=== PATIENT | female | born 1950 | race Caucasian/White ===

== ENCOUNTER 2018-04-17 18:47 | Emergency (ER) | payer BC, OTHER ==
--- NOTE | 2018-04-17 20:47 | RAD REPORT ---
EXAM DESCRIPTION: CT - CTHCSPWOC - 04/17/2018 8:38 pm CLINICAL HISTORY: Trauma, head and neck injury. Pain COMPARISON: <Comparisons> TECHNIQUE: Axial 5 mm thick images of the head were obtained. Axial 2 mm thick images of the cervical spine were obtained with sagittal and coronal reconstruction images generated and reviewed. All CT scans are performed using dose optimization technique as appropriate and may include automated exposure control or mA/KV adjustment according to patient size. FINDINGS: CT HEAD WITHOUT CONTRAST: No acute hemorrhage, hydrocephalus or extra-axial collection is identified.Moderate generalized brain atrophy is present with moderate periventricular and deep white matter chronic microvascular ischemi c changes.No areas of brain edema or midline shift. The paranasal sinuses and mastoids are clear.The calvarium is intact. CT CERVICAL SPINE WITHOUT CONTRAST: No fracture or subluxation.Moderate lower cervical degenerative changes.No prevertebral soft tissues swelling is identified. IMPRESSION: No acute intracranial or cervical spine findings. Moderate lower cervical degenerative changes.
--- NOTE | 2018-04-17 21:32 | RAD REPORT ---
EXAM DESCRIPTION: RAD - Hand Right 3 View - 04/17/2018 8:51 pm CLINICAL HISTORY: PAIN Fall COMPARISON: No comparisons FINDINGS: Prominent osteopenia is seen. No acute fracture or dislocation evident. Radiocarpal and fi rst carpometacarpal arthritic changes are noted. IMPRESSION: No acute finding demonstrated.
--- NOTE | 2018-04-17 23:38 | ER ---
Nurse's Notes [facility] Name: Mary Bourne Age: 67 yrs Sex: Female : 1950 Arrival Date: 04/17/2018 Time: 18:51 Bed 13 Private MD: None, None Diagnosis: Contusion of other part of head;Sprain of other part of right wrist and hand;Contusion of right hand;Abrasion of knee Presentation: 04/17 19:24 Presenting complaint: Patient states: "I fell in the parking lot going into the mall. I aj1 stepped across and it was wet and I tripped> I landed on both knee and I hit my glasses and then my head hit." Reports pain above right eye and to occipital area. Patient states that she feels like she is thinking slower than normal. Denies LOC, vomiting. Reports that she did feel nauseated, but now that has resolved. Care prior to arrival: None. Mechanism of Injury: Fall from standing position. Trauma event details: Injury occurred in the [facility]. 19:24 Acuity: JATIN 3 aj1 19:24 Method Of Arrival: Ambulatory aj1 19:29 Transition of care: patient was not received from another setting of care. Onset of aj1 symptoms was April 17, 2018 at 18:15. Risk Assessment: Do you want to hurt yourself or someone else? Patient reports no desire to harm self or others. Initial Sepsis Screen: Does the patient meet any 2 criteria? No. Patient's initial sepsis screen is negative. Does the patient have a suspected source of infection? No. Patient's initial sepsis screen is negative. Trauma Activation: Not Applicable Physician: ED Physician; Name: ; Notified At: ; Arrived At: Physician: General Surgeon; Name: ; Notified At: ; Arrived At: Physician: Radiology; Name: ; Notified At: ; Arrived At: Physician: Respiratory; Name: ; Notified At: ; Arrived At: Physician: Lab; Name: ; Notified At: ; Arrived At: Historical: - Allergies: 19:32 Demerol; aj1 19:32 Erythromycin; aj1 19:32 Sulfa (Sulfonamide Antibiotics); aj1 19:32 PENICILLINS; aj1 - Home Meds: 19:32 aspirin 81 mg Oral chew 1 tab once daily [Active]; Lexapro Oral [Active]; Nexium Oral aj1 [Active]; Toprol XL Oral [Active]; Advair Diskus Inhl [Active]; Insulin: Novolin R Sub-Q [Active]; - PMHx: 19:32 Asthma; Diabetes - IDDM; GERD; aj1 - PSHx: 19:32 cardiac bypass; aj1 - Immunization history:: Last tetanus immunization: up to date. - Immunization history: Last tetanus immunization: - up to date. - Social history:: Smoking status: Patient/guardian denies using tobacco. - Ebola Screening: : Patient denies travel to an Ebola-affected area in the 21 days before illness onset. Screenin:24 Abuse screen: Denies threats or abuse. Denies injuries from another. Tuberculosis aj1 screening: No symptoms or risk factors identified. 20:00 Nutritional screening: No deficits noted. Fall Risk Fall in past 12 months (25 points). jb4 Total Crowder Fall Scale indicates Low Risk Score (25-44 pts). Fall prevention measures have been instituted. Side Rails Up X 2 Placed close to Nursing Station Frequent Obs/Assesments occuring As available Patient and Family Educated on Fall Prevention Program and strategies. Primary Survey: 19:24 A: Airway: patent. Breathing/Chest: Respiratory pattern: regular, Respiratory effort: aj1 spontaneous, unlabored. Circulation: Skin color: pink. Disability Alert. Assessment: 19:24 General: Appears in no apparent distress. comfortable, Behavior is calm, cooperative, aj1 appropriate for age. Pain: Complains of pain in right eye, occipital area and right knee Pain currently is 5 out of 10 on a pain scale. Neuro: Level of Consciousness is awake, alert, obeys commands, Oriented to person, place, time, situation, Moves all extremities. Full function Gait is steady, Speech is normal, Facial droop on right. Cardiovascular: Patient's skin is warm and dry. Respiratory: Airway is patent Respiratory effort is even, unlabored, Respiratory pattern is regular, symmetrical. 20:00 General: Appears in no apparent distress. comfortable, Behavior is calm, cooperative, jb4 appropriate for age. Pain: Complains of pain in right eye, Right first web space, right knee and left knee Pain does not radiate. Pain currently is 5 out of 10 on a pain scale. Neuro: Level of Consciousness is awake, alert, obeys commands, Oriented to person, place, time, situation, Speech is normal, Pupils are PERRLA. Cardiovascular: Patient's skin is warm and dry. Respiratory: Airway is patent Respiratory effort is even, unlabored, Respiratory pattern is regular, symmetrical. GI: No signs and/or symptoms were reported involving the gastrointestinal system. : No signs and/or symptoms were reported regarding the genitourinary system. EENT: No signs and/or symptoms were reported regarding the EENT system. Derm: Skin is pink, warm \\T\\ dry. Musculoskeletal: Circulation, motion, and sensation intact. Injury Description: Abrasion sustained to right knee and left knee Bruise sustained to Right first web space. 21:15 Reassessment: Patient appears in no apparent distress at this time. Patient and/or jb4 family updated on plan of care and expected duration. Pain level reassessed. Patient is alert, oriented x 3, equal unlabored respirations, skin warm/dry/pink. 22:57 Reassessment: Patient appears in no apparent distress at this time. Patient and/or jb4 family updated on plan of care and expected duration. Pain level reassessed. Patient is alert, oriented x 3, equal unlabored respirations, skin warm/dry/pink. 23:44 Reassessment: Patient appears in no apparent distress at this time. Patient and/or jb4 family updated on plan of care and expected duration. Pain level reassessed. Patient is alert, oriented x 3, equal unlabored respirations, skin warm/dry/pink. Vital Signs: 19:24 BP 155 / 80; Pulse 67; Resp 18; Temp 97.4; Pulse Ox 100% on R/A; Weight 66.68 kg (R); aj1 Height 5 ft. 2 in. (157.48 cm) (R); 19:24 Pain 5/10; aj1 20:24 BP 185 / 81; Pulse 72; Resp 18; Pulse Ox 99% on R/A; mt 21:15 BP 185 / 87; Pulse 64; Resp 18; Pulse Ox 97% on R/A; jb4 22:31 BP 173 / 75; Pulse 73; Resp 16; Pulse Ox 98% on R/A; mt 23:44 BP 188 / 78; Pulse 64; Resp 16; Pulse Ox 100% on R/A; jb4 19:24 Body Mass Index 26.89 (66.68 kg, 157.48 cm) aj1 Sheila Coma Score: 19:24 Eye Response: spontaneous(4). Verbal Response: oriented(5). Motor Response: obeys aj1 commands(6). Total: 15. Trauma Score (Adult): 19:24 Eye Response: spontaneous(1); Verbal Response: oriented(1); Motor Response: obeys aj1 commands(2); Systolic BP: > 89 mm Hg(4); Respiratory Rate: 10 to 29 per min(4); [place] Score: 15; Trauma Score: 12 ED Course: 18:51 Patient arrived in ED. sb2 18:51 None, None is Private Physician. sb2 19:24 Patient has correct armband on for positive identification. aj1 19:24 Patient maintains SpO2 saturation greater than 95% on room air. aj1 19:27 Triage completed. aj1 19:32 Arm band placed on Patient placed in an exam room. aj1 19:34 Gustavo Espinosa MD is Attending Physician. 20:13 Howard Nicholson RN is Primary Nurse. jb4 20:[address] via stretcher. vm2 20:36 CT completed. Patient tolerated procedure well. Patient moved back from CT. vm2 23:44 No provider procedures requiring assistance completed. Patient did not have IV access jb4 during this emergency room visit. Administered Medications: No medications were administered Outcome: 23:37 Discharge ordered by . 23:44 Discharged to home ambulatory. jb4 23:44 Condition: stable 23:44 Discharge instructions given to patient, family, Instructed on discharge instructions, follow up and referral plans. Demonstrated understanding of instructions, follow-up care. 23:46 Patient left the ED. jb4 Signatures: Candis Andrea RN RN aj1 Howard Nicholson RN RN jb4 Carina Larose 2 Amparo Pelaez fl Gustavo Espinosa MD MD Bette Trammell [facility]
--- NOTE | 2018-04-17 23:38 | EDPHYS ---
Physician Documentation [facility] Name: Mary Bourne Age: 67 yrs Sex: Female : 1950 Arrival Date: 04/17/2018 Time: 18:51 Bed 13 Private MD: None, None ED Physician Gustavo Espinosa HPI: 04/17 23:31 This 67 yrs old Female presents to ER via Ambulatory with complaints of Fall Injury - gs HIT HEAD. 23:31 Details of fall: The patient fell from an upright position. Onset: The symptoms/episode gs began/occurred acutely, yesterday. Associated injuries: The patient sustained injury to the head, contusion, right hand, contusion, right knee, abrasion, contusion. Severity of symptoms: At their worst the symptoms were moderate, in the emergency department the symptoms are unchanged. The patient has not experienced similar symptoms in the past. The patient has not recently seen a physician. Historical: - Allergies: 19:32 Demerol; aj1 19:32 Erythromycin; aj1 19:32 Sulfa (Sulfonamide Antibiotics); aj1 19:32 PENICILLINS; aj1 - Home Meds: 19:32 aspirin 81 mg Oral chew 1 tab once daily [Active]; Lexapro Oral [Active]; Nexium Oral aj1 [Active]; Toprol XL Oral [Active]; Advair Diskus Inhl [Active]; Insulin: Novolin R Sub-Q [Active]; - PMHx: 19:32 Asthma; Diabetes - IDDM; GERD; aj1 - PSHx: 19:32 cardiac bypass; aj1 - Immunization history:: Last tetanus immunization: up to date. - Immunization history: Last tetanus immunization: - up to date. - Social history:: Smoking status: Patient/guardian denies using tobacco. - Ebola Screening: : Patient denies travel to an Ebola-affected area in the 21 days before illness onset. ROS: 23:31 All other systems are negative. gs Exam: 23:31 ENT: Nares patent. No nasal discharge, no septal abnormalities noted. Tympanic gs membranes are normal and external auditory canals are clear. Oropharynx with no redness, swelling, or masses, exudates, or evidence of obstruction, uvula midline. Mucous membranes moist. Chest/axilla: Normal chest wall appearance and motion. Nontender with no deformity. No lesions are appreciated. Cardiovascular: Regular rate and rhythm with a normal S1 and S2. No gallops, murmurs, or rubs. Normal PMI, no JVD. No pulse deficits. Respiratory: Lungs have equal breath sounds bilaterally, clear to auscultation and percussion. No rales, rhonchi or wheezes noted. No increased work of breathing, no retractions or nasal flaring. Abdomen/GI: Soft, non-tender, with normal bowel sounds. No distension or tympany. No guarding or rebound. No evidence of tenderness throughout. Back: No spinal tenderness. No costovertebral tenderness. Full range of motion. 23:31 Constitutional: The patient appears alert, awake. 23:31 Head/face: Noted is ecchymosis, that is moderate, of the right eye. 23:31 Eyes: Extraocular movements: no acute changes. 23:31 Neck: C-spine: vertebral tenderness, that is mild, appreciated at C3. 23:31 Musculoskeletal/extremity: Extremities: noted in the right hand: contusion, decreased ROM, ecchymosis, pain, ROM: intact in all extremities, Pulses: are normal with no appreciated deficits. 23:31 Skin: injury, abrasion(s), small abrasion noted, of the left knee. Vital Signs: 19:24 BP 155 / 80; Pulse 67; Resp 18; Temp 97.4; Pulse Ox 100% on R/A; Weight 66.68 kg (R); aj1 Height 5 ft. 2 in. (157.48 cm) (R); 19:24 Pain 5/10; aj1 20:24 BP 185 / 81; Pulse 72; Resp 18; Pulse Ox 99% on R/A; mt 21:15 BP 185 / 87; Pulse 64; Resp 18; Pulse Ox 97% on R/A; jb4 22:31 BP 173 / 75; Pulse 73; Resp 16; Pulse Ox 98% on R/A; mt 23:44 BP 188 / 78; Pulse 64; Resp 16; Pulse Ox 100% on R/A; jb4 19:24 Body Mass Index 26.89 (66.68 kg, 157.48 cm) aj1 Sheila Coma Score: 19:24 Eye Response: spontaneous(4). Verbal Response: oriented(5). Motor Response: obeys aj1 commands(6). Total: 15. Trauma Score (Adult): 19:24 Eye Response: spontaneous(1); Verbal Response: oriented(1); Motor Response: obeys aj1 commands(2); Systolic BP: > 89 mm Hg(4); Respiratory Rate: 10 to 29 per min(4); [place] Score: 15; Trauma Score: 12 MDM: 19:42 Patient medically screened. 23:31 Differential diagnosis: closed head injury, fracture, sprain, strain. Data reviewed: vital signs, nurses notes. Response to treatment: the patient's symptoms have markedly improved after treatment, and as a result, I will discharge patient. 04/17 19:43 Order name: CT Head C Spine 04/17 19:43 Order name: Hand Right 3 View XRAY 04/17 20:48 Order name: CT; Complete Time: 23:31 EDMS 04/17 21:33 Order name: RAD; Complete Time: 23:31 EDMS Administered Medications: No medications were administered Disposition: 04/17/18 23:37 Discharged to Home. Impression: Contusion of other part of head, Sprain of other part of right wrist and hand, Contusion of right hand, Abrasion of knee. - Condition is Stable. - Discharge Instructions: Hand Contusion, Head Injury, Adult, Knee Pain. - Medication Reconciliation Form, Thank You Letter, Antibiotic Education, Prescription Opioid Use form. - Follow up: Private Physician; When: 2 - 3 days; Reason: Re-evaluation by your physician. Signatures: Dispatcher [employer] EDMS Candis Andrea RN RN aj1 Howard Nicholson RN RN jb4 Gustavo Espinosa MD MD Corrections: (The following items were deleted from the chart) 23:46 23:37 04/17/2018 23:37 Discharged to Home. Impression: Contusion of other part of head; jb4 Sprain of other part of right wrist and hand; Contusion of right hand; Abrasion of knee. Condition is Stable. Forms are Medication Reconciliation Form, Thank You Letter, Antibiotic Education, Prescription Opioid Use. Follow up: Private Physician; When: 2 - 3 days; Reason: Re-evaluation by your physician.
== END 2018-04-17 23:46 | disposition home or self-care (01) ==
LOC: ER 18:47
DX: S63.501A Unspecified sprain of right wrist, initial encounter (principal); S80.212A Abrasion, left knee, initial encounter; S60.221A Contusion of right hand, initial encounter; W01.10XA Fall on same level from slipping, tripping and stumbling with subsequent striking against unspecified object, initial encounter; Y93.9 Activity, unspecified; Y92.9 Unspecified place or not applicable; Z79.4 Long term (current) use of insulin; Z79.82 Long term (current) use of aspirin; Z88.0 Allergy status to penicillin; Z88.2 Allergy status to sulfonamides; Z88.3 Allergy status to other anti-infective agents; Z88.5 Allergy status to narcotic agent; E11.9 Type 2 diabetes mellitus without complications; J45.909 Unspecified asthma, uncomplicated
CPT/HCPCS: 70450; 72125; 99284

== ENCOUNTER 2019-06-26 01:26 | Emergency (ER) | payer BC, OTHER ==
--- OUTSIDE RECORDS SUMMARY | 2019-06-26 01:29 | XMS REPORT | Summary of Care ---
:1950 Author Organization [facility] Address [address] [place] [id number] Care Team Providers Name Role Phone Aydee Chaney MD Unavailable 1, Adc Lab Unavailable Unavailable Shantal Strong MD Primary Care Provider Reason for Visit Reason Comments Orders alternative visit Encounter Details Date Type Department Care Team Description 12/14/2018 Telephone [facility] Pediatric Shantal Strong Orders ( alternative and Adult Primary A, visit) Care- [address] [address] [address] [place], [place] [id number] [place] [address] [phone] Allergies Active Allergy Reactions Severity Noted Date Comments Atorvastatin Other - See comments Low 11/24/2018 Muscle pain Ciprofloxacin Nausea and/or Vomiting 03/13/2018 Meperidine Hcl Nausea and/or Vomiting 08/13/2016 Erythromycin Nausea and/or Vomiting 08/13/2016 Penicillins Shortness of Breath 08/13/2016 Phenazopyridine Hcl Nausea and/or Vomiting 08/13/2016 Simvastatin Other - See comments Low 11/24/2018 Muscle pain Sulfa (Sulfonamide Diarrhea 01/23/2018 Antibiotics) documented as of this encounter (statuses as of 12/14/2018) Medications Medication Sig Dispensed Refills Start Date End Date Status ASPIRIN (ASPIR-81 Take 81 mg by 0 Active ORAL)Indications: mouth daily. Coronary artery disease involving ewiiaapaayp heart without angina pectoris, unspecified vessel or lesion type fluocinonide 0.05 % Apply to scalp 60 mL 1 01/23/2017 Active solution BID rash. PROAIR HFA 90 Inhale 2 Puffs as 4 01/22/2017 Active mcg/actuation inhaler needed. ketoconazole 2 % cream Apply to area(s) 30 g 1 03/11/2017 Active daily. Insulin [place], Use as directed 4 360 Each 3 07/02/2017 Active Disposable, (ISSAC PEN times daily NEEDLE) 32 gauge x 5/32" NdleIndications: Type 2 diabetes mellitus with complication, with long-term current use of insulin ergocalciferol, Take 1 capsule by 12 capsule 0 10/20/2017 Active vitamin d2, 50,000 mouth weekly. unit capsule Once completed with 12 weeks start OTC Vitamin D 2000 IU daily blood sugar diagnostic Use up to 4 times 360 Strip 3 10/22/2017 Active (CONTOUR NEXT STRIPS) daily. E 11.8 stripIndications: Type 2 diabetes mellitus with complication, with long-term current use of insulin glucagon (GLUCAGON inject 1 mg under 1 Kit 1 01/20/2018 Active EMERGENCY KIT, HUMAN,) the skin as 1 mg needed for Other injectionIndications: (When low glucose Type 2 diabetes below 50 and you mellitus with renal are unable to manifestations not at swallow due to goal impaired consciousness). conjugated estrogens Insert 1 g into 30 g 1 03/13/2018 Active 0.625 mg/gram vaginal vagina cream SEE-INSTRUCTIONS. Apply small amount to vagina 3 times a week escitalopram oxalate Take 1 tablet by 90 tablet 3 04/28/2018 Active (LEXAPRO) 20 mg tablet mouth daily. metoprolol succinate Take 1 tablet by 90 tablet 3 04/28/2018 Active XL 25 mg 24 hr tablet mouth daily. esomeprazole 40 mg Take 1 capsule by 90 capsule 3 04/28/2018 Active capsule mouth daily with breakfast. evolocumab (REPATHA inject 1 0 Active SURECLICK) 140 mg/mL Cartridge under PnIj the skin every 2 (two) weeks. flash glucose scanning 1 Each daily. 1 Each 0 07/20/2018 Active reader (FREESTYLE RENETTA 14 DAY READER) MiscIndications: Type 2 diabetes mellitus with complication, with long-term current use of insulin flash glucose sensor 1 Each every 14 2 Kit 5 07/20/2018 Active (FREESTYLE RENETTA 14 (fourteen) days. DAY SENSOR) KitIndications: Type 2 diabetes mellitus with complication, with long-term current use of insulin insulin lispro, human, inject 80 Units 70 mL 1 07/20/2018 Active (HUMALOG U-100 under the skin INSULIN) 100 unit/mL daily. Use as injectionIndications: directed with Type 2 diabetes insulin pump, Max mellitus with dose 80 units complication, with daily long-term current use of insulin Diclofenac Sodium Take 2-4 grams 100 g 3 07/29/2018 Active (VOLTAREN) 1 % three times a day gelIndications: Right as needed for arm pain pain Nitrofurantoin&Nit. Take 1 capsule by 14 capsule 0 08/03/2018 Active Macrocryst (MACROBID) mouth 2 (two) 100 mg times daily. capsuleIndications: Recurrent UTI documented as of this encounter (statuses as of 12/14/2018) Active Problems Problem Noted Date Onychomycosis 02/12/2017 Insulin pump status 11/05/2016 Type 2 diabetes mellitus with complication, with long-term current use of insulin Dyslipidemia 11/05/2016 Essential hypertension 11/05/2016 Vitamin D deficiency 11/05/2016 documented as of this encounter (statuses as of 12/14/2018) Immunizations Name Administration Dates Next Due Influenza High Dose 04/02/2018 Influenza Virus Vaccine 04/02/2018, 04/18/2017, 04/14/2017, 08/29/2004 Pneumococcal 13 Conjugate, PCV13 02/17/2016, 04/06/2015, 08/17/2013 (Prevnar 13) Pneumococcal Polysaccharide, PPSV23 02/15/2014, 10/18/2013 (PNEUMOVAX) Tdap 06/15/2014 Zoster(Zostavax)(Shingles) 02/16/2014 documented as of this encounter Social History Tobacco Use Types Packs/Day Years Used Date Never Smoker Smokeless Tobacco: Never Used Alcohol Use Drinks/Week oz/Week Comments No Sex Assigned at Date Recorded Not on file Job Start Date Occupation Industry Not on file Not on file Not on file Travel History Travel Start Travel End No recent travel history available. documented as of this encounter Last Filed Vital Signs Not on filedocumented in this encounter Plan of Treatment Date Type Specialty Care Team Description 12/23/2018 Office Visit Orthopedic Surgery Harini Calabrese DPM [address] [place] [address] [phone] 12/28/2018 Office Visit Internal Medicine Shantal Strong MD [address] [place] [address] Dr Hodge [address] [place] [address] [phone] 12/31/2018 Child And Family Therapist Visit Endocrinology Diabetes & MinaCharlene hurley RD Metabolism [address] [place] [address] [phone] 01/19/2019 Office Visit Endocrinology Diabetes & Estefanía Schumacher MD Metabolism [address] [place] [address] [phone] 03/05/2019 Office Visit Vascular Surgery Beverly Benites MD [address] [place] [address] [phone] 03/16/2019 Office Visit Dermatology Americo Wick MD [address] [place] [address] [id number] [place], [place] [id number] 05/06/2019 Office Visit Cardiology Aydee Chaney MD [address] [place] [address] DR HODGE [address] [place] [address] [phone] 09/08/2019 Office Visit Pulmonary Disease Rajat Pacheco [address] [place] [address] Dr [address] [place], [place] [address], [place] [id number] Health Maintenance Due Date Last Done Comments Osteoporosis Screening 2013 Medicare Wellness Visit 01/12/2019 01/12/2018 INFLUENZA VACCINE 01/17/2019 04/02/2018, 04/02/2018, 04/18/2017, Additional history exists HgA1C 04/17/2019 10/16/2018, 07/20/2018, 04/21/2018, Additional history exists Zoster Recombinant Vaccine 04/28/2019 02/16/2014 Postponed from ([facility]) (2 of 3) 04/13/2014 (Insurance / Financial) MAMMOGRAM 05/25/2019 05/25/2018, 10/21/2016 FOOT EXAM 07/21/2019 07/20/2018, 07/20/2018, 04/21/2018, Additional history exists LDL-C 07/30/2019 07/29/2018, 10/15/2017, 08/27/2016 URINE MICROALBUMIN 07/30/2019 07/29/2018, 10/15/2017 EYE EXAM 08/12/2019 08/11/2018, 02/10/2018, 01/19/2018, Additional history exists CREATININE (SERUM) 11/06/2019 11/05/2018, 07/29/2018, 10/15/2017, Additional history exists COLONOSCOPY 09/21/2023 09/20/2013 DTaP,Tdap,and Td Vaccines 06/15/2024 06/15/2014 (2 - Td) PNEUMOCOCCAL VACCINES 65+ Completed 02/17/2016, 04/06/2015, 02/15/2014, Additional history exists HEPATITIS C (HCV) SCREEN Completed 07/29/2018 documented as of this encounter Implants Implanted Type Area Clinical Laboratory Assistant Device Shelf Model / Serial Identifier Expiration / Lot Date Lens, Martell #[id number] - [id number] LENS Right: Martell 01/16/2023 [id number] / Implanted: Qty: 1 on 11/12/2018 by Americo Lee MD at [facility] Eye [id number] / NA Lens, Martell #[id number] - [id number] LENS Left: Eye Martell 08/17/2019 [id number] / Implanted: Qty: 1 on 11/26/2018 by Americo Lee MD at [facility] [id number] / N/A documented as of this encounter Results Not on filedocumented in this encounter Insurance Payer Benefit Plan Subscriber ID Effective Phone Address Type / Group Dates BS [facility] [employer] [place] [id number] 2016-Prese [address] Medicare Adv - MANAGED MEDICARE ADV nt [id number] [place] [address] FOR [id number] 2017-Pres Medicare LIFE ent Supplement documented as of this encounter
--- OUTSIDE RECORDS SUMMARY | 2019-06-26 01:29 | XMS REPORT ---
:1950 Author Organization [facility] Address [address] [place] [address] Dr. Avelar [address] [place] [id number] Care Team Providers Name Role Phone Unavailable Unavailable Unavailable Problems This patient has no known problems. Allergies, Adverse Reactions, Alerts This patient has no known allergies or adverse reactions. Medications This patient has no known medications.
--- OUTSIDE RECORDS SUMMARY | 2019-06-26 01:30 | XMS REPORT | Summary of Care ---
:1950 Author Organization [facility] - Health Address [address] [place] [address] Care Team Providers Name Role Phone Aydee Chaney MD Unavailable 1, [facility] Lab Unavailable Unavailable Shantal Strong MD Primary Care Provider Encounter Details Date Type Department Care Team Description 12/16/2018 Orders Only [facility] Doctor Unassigned, No [address] [facility] [place] [address] Allergies Active Allergy Reactions Severity Noted Date [...] as of this encounter (statuses as of 12/16/2018) Medications Medication Sig Dispensed Refills Start Date End Date Status ASPIRIN (ASPIR-81 Take 81 mg by 0 Active ORAL)Indications: mouth daily. Coronary artery disease involving navajo heart without angina pectoris, unspecified vessel or lesion type fluocinonide 0.05 % Apply to scalp 60 mL 1 01/23/2017 Active solution BID rash. PROAIR HFA 90 Inhale 2 Puffs as 4 01/22/2017 Active mcg/actuation inhaler needed. ketoconazole 2 % cream Apply to area(s) 30 g 1 03/11/2017 Active daily. Insulin [place], Use as directed 4 360 Each 3 [...] as of this encounter (statuses as of 12/16/2018) Active Problems Problem Noted Date Onychomycosis 02/12/2017 Insulin pump status 11/05/2016 Type 2 diabetes mellitus with complication, with long-term current use of insulin Dyslipidemia 11/05/2016 Essential hypertension 11/05/2016 Vitamin D deficiency 11/05/2016 documented as of this encounter (statuses as of 12/16/2018) Immunizations Name Administration Dates Next Due Influenza [...] Treatment Date Type Specialty Care Team Description 12/16/2018 Security Assistant Visit Clinical Medical Aydee Chaney MD [address] [place] [address] Arrived Laboratory 1, [facility] Lab 12/23/2018 Office Visit Orthopedic Surgery Harini Calabrese DPM [address] [place] [address] [phone] 12/28/2018 Office Visit Internal Medicine Shantal Strong MD [address] [place] [address] Dr Hodge [address] [place] [address] [phone] 12/31/2018 Panel Laminator Visit Endocrinology Diabetes & MinaCharlene hurley RD Metabolism [address] [place] [address] [phone] 01/19/2019 Office Visit Endocrinology Diabetes & SchumacherEstefanía MD Metabolism [address] [place] [address] [phone] 03/05/2019 Office Visit Vascular Surgery Beverly Benites MD [address] [place] [phone] 03/16/2019 Office Visit Dermatology Americo Wick MD [address] [place] [address] [id number] [place] [address] [phone] 05/06/2019 Office Visit Cardiology Aydee Chaney MD [address] [place] [address] DR HODGE [address] [place] [phone] 09/08/2019 Office Visit Pulmonary Disease Rajat Pacheco [address] [place] [address] Dr Hodge [address] [place] [address] [phone] Health Maintenance Due Date Last Done Comments [...] of this encounter Implants Implanted Type Area Parimutuel Ticket Checker Device Shelf Model / Serial Identifier Expiration / Lot Date Lens, Martell #Sn60wf - [id number] LENS Right: Martell 01/16/2023 SN60WF / Implanted: Qty: 1 on 11/12/2018 by Americo Lee MD at [facility] Eye [id number] / NA Lens, Martell #[id number] - [id number] LENS Left: Eye Martell 08/17/2019 SN60WF / Implanted: Qty: 1 on 11/26/2018 by Americo Lee MD at [facility] [id number] / N/A documented as of this encounter Procedures Procedure Name Priority Date/Time Associated Diagnosis Comments ASSIGNMENT OF BENEFITS Routine 12/16/2018 8:56 AM CDT documented in this encounter Results Not on filedocumented in this encounter Insurance Payer Benefit Plan Subscriber ID Effective Phone Address Type / Group Dates [facility] BCBS [facility] [id number] 2016-Prese [address] Medicare Adv - MANAGED MEDICARE ADV nt [id number] [address] FOR [id number] 2017-Pres Medicare LIFE ent Supplement documented as of this encounter
--- OUTSIDE RECORDS SUMMARY | 2019-06-26 01:31 | XMS REPORT | Summary of Care ---
:1950 Author Organization [facility] - [facility] Address [address] [place] [address] Care Team Providers Name Role Phone Aydee Chaney MD Unavailable , Adc Lab Unavailable Unavailable Shantal Strong MD Primary Care Provider Reason for Visit Reason Comments Rx Concern/Question Lab Results Encounter Details Date Type Department Care Team Description 12/16/2018 Telephone [facility] [employer] Aydee Chaney Rx Concern/Question; Cardiology- Ivania Garza MD Lab Results [address], [address] [place] [address] Allergies Active Allergy Reactions Severity Noted Date [...] as of this encounter (statuses as of 12/17/2018) Medications Medication Sig Dispensed Refills Start Date End Date Status ASPIRIN (ASPIR-81 Take 81 mg by 0 Active ORAL)Indications: mouth daily. Coronary artery disease involving [place] heart without angina pectoris, unspecified vessel or lesion type fluocinonide 0.05 % Apply to scalp 60 mL 1 01/23/2017 Active solution BID rash. PROAIR HFA 90 Inhale 2 Puffs as 4 01/22/2017 Active mcg/actuation inhaler needed. ketoconazole 2 % cream Apply to area(s) 30 g 1 03/11/2017 Active daily. Insulin [place], Use as directed 4 360 Each 3 [...] as of this encounter (statuses as of 12/17/2018) Active Problems Problem Noted Date Onychomycosis 02/12/2017 Insulin pump status 11/05/2016 Type 2 diabetes mellitus with complication, with long-term current use of insulin Dyslipidemia 11/05/2016 Essential hypertension 11/05/2016 Vitamin D deficiency 11/05/2016 documented as of this encounter (statuses as of 12/17/2018) Immunizations Name Administration Dates Next Due Influenza [...] Surgery Harini Calabrese DPM [address] [place] [address] [phone] 12/28/2018 Office Visit Internal Medicine Shantal Strong MD [address] [place] [address] Dr Hodge [address] [place] [address] [phone] 12/31/2018 Community Service Patrol Officer Visit Endocrinology Diabetes & MinaCharlene hurley RD Metabolism [address] [place] [address] [phone] 01/19/2019 Office Visit Endocrinology Diabetes & Estefanía Schumacher MD Metabolism [address] [place], [place] [address] 03/05/2019 Office Visit Vascular Surgery Beverly Benites MD [address] [place] [phone] 03/16/2019 Office Visit Dermatology Americo Wick MD [address] [place] [address] [id number] [place] [address] [phone] 05/06/2019 Office Visit Cardiology Aydee Chaney MD [address] [place] [address] DR HODGE [address] [place] [address] [phone] 09/08/2019 Office Visit Pulmonary Disease Rajat Pacheco [address] [place] [address] Dr Hodge [address] [place] [address] [phone] Name Type Priority Associated Diagnoses Order Schedule LIPID PANEL LAB Routine Dyslipidemia Expected: 02/16/2019, ([id number])(TOTAL Expires: 12/18/2019 CHOLESTEROL, TRIGLYCERIDES, HDL) Health Maintenance Due Date Last Done Comments Osteoporosis Screening 2013 Medicare Wellness Visit 01/12/2019 01/12/2018 INFLUENZA VACCINE 01/17/2019 04/02/2018, 04/02/2018, 04/18/2017, Additional history exists Zoster Recombinant Vaccine 04/28/2019 02/16/2014 Postponed from ([facility]) (2 of 3) 04/13/2014 (Insurance / Financial) MAMMOGRAM 05/25/2019 05/25/2018, 10/21/2016 HgA1C 06/18/2019 12/16/2018, 10/16/2018, 07/20/2018, Additional history exists FOOT EXAM 07/21/2019 07/20/2018, 07/20/2018, 04/21/2018, Additional history exists URINE MICROALBUMIN 07/30/2019 07/29/2018, 10/15/2017 EYE EXAM 08/12/2019 08/11/2018, 02/10/2018, 01/19/2018, Additional history exists CREATININE (SERUM) 12/17/2019 12/16/2018, 11/05/2018, 07/29/2018, Additional history exists LDL-C 12/17/2019 12/16/2018, 07/29/2018, 10/15/2017, Additional history exists COLONOSCOPY 09/21/2023 09/20/2013 DTaP,Tdap,and Td Vaccines 06/15/2024 06/15/2014 (2 - Td) PNEUMOCOCCAL VACCINES 65+ Completed 02/17/2016, 04/06/2015, 02/15/2014, Additional history exists HEPATITIS C (HCV) SCREEN Completed 07/29/2018 documented as of this encounter Implants Implanted Type Area Associate Media Director Device Shelf Model / Serial Identifier Expiration / Lot Date Lens, Martell #Sn60wf - [id number] LENS Right: Martell 01/16/2023 SN60WF / Implanted: Qty: 1 on 11/12/2018 by Americo Lee MD at [facility] Eye [id number] / NA Lens, Martell #[id number] - [id number] LENS Left: Eye Martlel 08/17/2019 SN60WF / Implanted: Qty: 1 on 11/26/2018 by Americo Lee MD at [facility] [id number] / N/A documented as of this encounter Results Not on filedocumented in this encounter Visit Diagnoses Diagnosis Dyslipidemia - Primary Other and unspecified hyperlipidemia documented in this encounter Insurance Payer Benefit Plan Subscriber ID Effective Phone Address Type / Group Dates [facility] [id number] 2016-Prese [address] Medicare Adv - MANAGED MEDICARE ADV nt [id number] [place] [address] FOR [id number] 2017-Pres Medicare LIFE ent Supplement documented as of this encounter
--- OUTSIDE RECORDS SUMMARY | 2019-06-26 01:31 | XMS REPORT | Summary of Care ---
:1950 Author Organization [facility] Address [address] [place] [address] Care Team Providers Name Role Phone Aydee Chaney MD Unavailable 1, [facility] Unavailable Unavailable Shantal Strong MD Primary Care Provider Reason for Visit Reason Comments LAB WORK Auth/Cert Status Reason Specialty Diagnoses / Referred By Referred To Procedures Contact Contact Clinical Medical Diagnoses LIPID PANEL [facility] Laboratory Procedures lipid [address] [place] [address] [place] [address] Encounter Details Date Type Department Care Team Description 12/16/2018 Potato Seed Cutter Visit [facility] Aydee Chaney MD [address] [place] [address] Memory loss; Phlebotomy 1, [facility] Abnormal levels of other serum enzymes ; [facility] Type 2 diabetes mellitus with complication, with long-term current use of insulin; 132 [facility] S/P CABG (coronary artery bypass graft); [place], [place] Dyslipidemia; [phone] Myalgia due to statin; [phone] Coronary artery disease involving pass[place] coronary artery of pass[place] heart without angina pectoris; Bilateral carotid artery disease, unspecified type; Essential hypertension Allergies Active Allergy Reactions Severity Noted Date [...] ORAL)Indications: mouth daily. Coronary artery disease involving [place] heart without angina pectoris, unspecified vessel or lesion type fluocinonide 0.05 % Apply to scalp 60 mL 1 01/23/2017 Active solution BID rash. PROAIR HFA 90 Inhale 2 Puffs as 4 01/22/2017 Active mcg/actuation inhaler needed. ketoconazole 2 % cream Apply to area(s) 30 g 1 03/11/2017 Active daily. Insulin [place], Use as directed 4 360 Each 3 [...] Description 12/23/2018 Office Visit Orthopedic Surgery Harini Calabrese, [address] [place] [address] [phone] 12/28/2018 Office Visit Internal Medicine Shantal Strong MD [address] [place] [address] Dr [address] [place] [address] [phone] 12/31/2018 Triple Valve Tester Visit Endocrinology Diabetes & MinaCharlene hurley RD Metabolism [address] [place] [phone] 01/19/2019 Office Visit Endocrinology Diabetes & Estefanía Schumacher MD Metabolism [address] [place] [address] 03/05/2019 Office Visit Vascular Surgery Beverly Benites MD [address] [place] [phone] 03/16/2019 Office Visit Dermatology Americo Wick MD [address] [place] [address] [phone] [place] [address] [phone] 05/06/2019 Office Visit Cardiology Aydee Chaney MD [address] [place] [address] [address] [place] [phone] 09/08/2019 Office Visit Pulmonary Disease Rajat Pacheco [address] [place] [address] Dr Hodge [address] [place] [phone] Name Type Priority Associated Diagnoses Date/Time VITAMIN B6, PLASMA LAB Routine Abnormal levels of other 12/16/2018 9:09 AM CDT serum enzymes Memory loss ZINC, SERUM LAB Routine Memory loss 12/16/2018 9:09 AM CDT COPPER, SERUM LAB Routine Memory loss 12/16/2018 9:09 AM CDT VITAMIN B1 (THIAMINE), LAB Routine Memory loss 12/16/2018 9:09 AM CDT WHOLE BLOOD Health Maintenance Due Date Last Done Comments [...] of this encounter Implants Implanted Type Area Steward/Stewardess Room Device Shelf Model / Serial Identifier Expiration / Lot Date Lens, Martell #[id number] - [id number] LENS Right: Martell 01/16/2023 [id number] / Implanted: Qty: 1 on 11/12/2018 by Americo Lee MD at [facility] [id number] / NA Lens, Martell #[id number] - [id number] LENS Left: Eye Martell 08/17/2019 [id number] / Implanted: Qty: 1 on 11/26/2018 by Americo Lee MD at [facility] [id number] / N/A documented as of this encounter Procedures Procedure Name Priority Date/Time Associated Comments Diagnosis FREE T3 Routine 12/16/2018 9:09 Memory loss Results for AM CDT this procedure are in the results section. HOMOCYSTEINE Routine 12/16/2018 9:09 Memory loss Results for AM CDT this procedure are in the results section. HIGH SENSITIVITY CRP Routine 12/16/2018 9:09 Memory loss Results for AM CDT this procedure are in the results section. GLYCOSYLATED HEMOGLOBIN (A1C) Routine 12/16/2018 9:09 Abnormal levels Results for AM CDT of other serum this procedure enzymes are in the Memory loss results Type 2 diabetes section. mellitus with complication, with long-term current use of insulin ESTRADIOL, LEVEL Routine 12/16/2018 9:09 Memory loss Results for AM CDT this procedure are in the results section. PROGESTERONE, LEVEL Routine 12/16/2018 9:09 Memory loss Results for AM CDT this procedure are in the results section. DEHYDROEPIANDROSTERONE Routine 12/16/2018 9:09 Memory loss Results for SULFATE AM CDT this procedure are in the results section. LIPID PANEL ([id number])(TOTAL Routine 12/16/2018 9:09 Memory loss Results for CHOLESTEROL, TRIGLYCERIDES, AM CDT Type 2 diabetes this procedure HDL) mellitus with are in the complication, results with long-term section. current use of insulin COMP. METABOLIC PANEL (07570) Routine 12/16/2018 9:09 Memory loss Results for AM CDT this procedure are in the results section. THYROID STIMULATING HORMONE Routine 12/16/2018 9:09 Memory loss Results for AM CDT this procedure are in the results section. FREE T4 Routine 12/16/2018 9:09 Memory loss Results for AM CDT this procedure are in the results section. INSULIN, LEVEL Routine 12/16/2018 9:09 Memory loss Results for AM CDT Type 2 diabetes this procedure mellitus with are in the complication, results with long-term section. current use of insulin FOLATE Routine 12/16/2018 9:09 Memory loss Results for AM CDT this procedure are in the results section. VITAMIN B12, LEVEL Routine 12/16/2018 9:09 Memory loss Results for AM CDT this procedure are in the results section. CORTISOL AM Routine 12/16/2018 9:09 Memory loss Results for AM CDT this procedure are in the results section. documented in this encounter Results FREE T3 (12/16/2018 9:09 AM CDT) FREE T3 2.89 2.77 - 5.27 pg/mL [facility] Specimen Blood Performing Organization Address City/[facility]/Zipcode Phone Number [facility] CLIA: [id number], [address] [place] [address] FREE T4 (12/16/2018 9:09 AM CDT) FREE T4 0.98 0.78 - 2.20 ng/dL [facility] Specimen Blood Performing Organization Address City/[facility] Phone Number [facility] CLIA: [id number], [address] [place] [address] THYROID STIMULATING HORMONE (12/16/2018 9:09 AM CDT) TSH 1.58 0.45 - 4.70 mIU/L [facility] Specimen Blood Performing Organization Address City/[facility] Phone Number [facility] CLIA: [id number], [address] [place] [address] PROGESTERONE, LEVEL (12/16/2018 9:09 AM CDT) PROGEST 0.35 ng/mL [facility] Specimen Blood Narrative Performed At Normal ranges for Progesterone [facility] Proliferative: 0.3 1.5 ng/mL Luteal:5.1 18.5 ng/mL Performing Organization Address City/[facility]/Zipcode Phone Number [facility] CLIA: [id number], [address] [place] [address] [phone] [facility] ESTRADIOL, LEVEL (12/16/2018 9:09 AM CDT) E2 <20 pg/mL [facility] Specimen Blood Narrative Performed At Estradiol Reference Ranges: [facility] Female: Follicular 27-122 pg/mL [id number] pg/mL Luteal 49-291 pg/mL Post Menopausal 20-40 pg/mL Male 20-47 pg/mL Performing Organization Address City/State/[facility] Cent[facility] Phone Number [facility] CLIA: [id number], [address] [place] [phone] [facility] CORTISOL AM (12/16/2018 9:09 AM CDT) DEBBIE AM 8.7 4.5 - 23.0 ug/dL [facility] Specimen Blood Narrative Performed At Biotin has been reported to cause a positive bias, interpret [facility] results relative to patient's use of biotin. Performing Organization Address City/[facility] Phone Number [facility] CLIA: [id number], [address] [place] [phone] [facility] DEHYDROEPIANDROSTERONE SULFATE (12/16/2018 9:09 AM CDT) DHEA-S 207.6 ng/mL [facility] Specimen Blood Narrative Performed At Normal Ranges for DHEA SO4 [facility] Prepubertal: 50-995 ng/mL Adult: 650-3400 ng/mL Adult levels may decrease with age after age 50. Decreased level may be seen in term pregnancies. Pubertal is based on physical examination. Performing Organization Address City/[facility] Phone Number [facility] CLIA: [id number], [address] [place] [phone] [facility] LIPID PANEL (03683)(TOTAL CHOLESTEROL, TRIGLYCERIDES, HDL) (12/16/2018 9:09 AM CDT) CHOL 293 (H) 120 - 200 mg/dL [facility] HDL 44 (L) >50 mg/dL [facility] HDLC RATIO 6.7 (H) <=4.5 [facility] TRIG 241 (H) 30 - 170 mg/dL [facility] LDL CHOL 201 (H) <=160 mg/dL [facility] VLDL 48 5 - 60 mg/dL [facility] Specimen Blood Performing Organization Address City/State/[facility] Cent[facility]ode Phone Number [facility] CLIA: [id number], [address] [place] [address] INSULIN, LEVEL (12/16/2018 9:09 AM CDT) Insulin 51.6 (H) 1.9 - 23.0 uIU/mL [facility] Specimen Blood Performing Organization Address City/State/Zipcode Phone Number [facility] CLIA: [id number], [address] [place] [address] [phone] [facility] GLYCOSYLATED HEMOGLOBIN (A1C) (12/16/2018 9:09 AM CDT) HGB A1C 6.9 (H) 4.0 - 6.0 % NGSP [facility] Specimen Blood Narrative Performed At %A1C (NGSP) Interpretation (ADA) [facility] 4.8-5.6 Normal or (Non-Diabetic Range) 5.7-6.4 Increased Risk (Pre-Diabetic) >6.5Diabetes Indicated Performing Organization Address [facility] Cent[facility]ode Phone Number [facility] CLIA: [id number], [address] [place] [address] COMP. METABOLIC PANEL (53722) (12/16/2018 9:09 AM CDT) NA 139 135 - 145 [facility] mmol/L [facility] K 4.3 3.5 - 5.0 [facility] mmol/L [facility] CL 105 98 - 108 mmol/L [facility] CO2 TOTAL 27 23 - 31 mmol/L [facility] AGAP 7 2 - 16 [facility] BUN 27 (H) 7 - 23 mg/dL [facility] GLUCOSE 91 70 - 110 mg/dL [facility] CREATININE 1.29 (H) 0.50 - 1.04 [facility] mg/dL [facility] TOTAL BILI 0.4 0.1 - 1.1 mg/dL [facility] CALCIUM 9.5 8.6 - 10.6 [facility] mg/dL [facility] T PROTEIN 7.3 6.3 - 8.2 g/dL [facility] ALBUMIN 4.2 3.5 - 5.0 g/dL [facility] ALK PHOS 67 34 - 122 U/L [facility] ALT(SGPT) 21 9 - 51 U/L [facility] AST(SGOT) 22 13 - 40 U/L [facility] eGFR Calculation 40.9 mL/min/1.73m2 [facility] [place]) eGFR Calculation 49.5 mL/min/1.73m2 [facility] () [facility] Specimen Blood Narrative Performed At Association of Glomerular Filtration Rate (GFR) [facility] and Staging of Kidney Disease* + + +- + | GFR (mL/min/1.73 m2)| With Kidney Damage|Without Kidney Damage + + +- + |>90| Stage one| Normal + + +- + |60-89|S tage two| Decreased GFR + + +- + |30-59|S tage three| Stage three + + +- + |15-29|S tage four | Stage four + + +- + |<15 (or dialysis)|Stage five | Stage five + + +- + *Each stage assumes the associated GFR level has been in effect for at least three months.Stages 1 to 5, with or without kidney disease, indicate chronic kidney disease. Notes: Determination of stages one and two (with eGFR >59mL/min/1.73 m2) requires estimation of kidney damage for at least three months as defined by structural or functional abnormalities of the kidney, manifested by either: Pathological abnormalities or Markers of kidney damage (including abnormalities in the composition of the blood or urine or abnormalities in imaging tests). Performing Organization Address City/[facility]/Zipcode Phone Number [facility] CLIA: [id number], [address] [place] [address] [facility] [address] FOLATE (12/16/2018 9:09 AM CDT) FOLATE SER 11.1 3.0 - 20.0 ng/mL [facility] Specimen Blood Performing Organization Address City/State/Zipcode Phone Number [facility] CLIA: [id number], [address] [place] [address] [facility] VITAMIN B12, LEVEL (12/16/2018 9:09 AM CDT) VIT B12 312 240 - 930 pg/mL [facility] Specimen Blood Narrative Performed At Biotin has been reported to cause a positive bias, interpret [facility] results relative to patient's use of biotin. Performing Organization Address City/[facility]/Zipcode Phone Number [facility] CLIA: [id number], [address] [place] [address] [phone] [facility] HOMOCYSTEINE (12/16/2018 9:09 AM CDT) Homocysteine 12.4 4.7 - 12.6 umol/L [facility] Specimen Blood Performing Organization Address [facility] Phone Number [facility] CLIA: [id number], [address] [place] [phone] [facility] HIGH SENSITIVITY CRP (12/16/2018 9:09 AM CDT) HS CRP 0.36 <0.74 mg/dL [facility] Specimen Blood Performing Organization Address [facility] Phone Number [facility] CLIA: [id number], [address] [place] [phone] [facility] documented in this encounter Visit Diagnoses Diagnosis Memory loss Abnormal levels of other serum enzymes Type 2 diabetes mellitus with complication, with long-term current use of insulin S/P CABG (coronary artery bypass graft) Postsurgical aortocoronary bypass status Dyslipidemia Other and unspecified hyperlipidemia Myalgia due to statin Coronary artery disease involving pass[place] coronary artery of [place] heart without angina pectoris Bilateral carotid artery disease, unspecified type Essential hypertension Unspecified essential hypertension documented in this encounter Insurance Payer Benefit Plan Subscriber ID Effective Phone Address Type / Group Dates [facility] [id number] 2016-e [address] Medicare Adv - [place]NA[place]ED MEDICARE ADV nt [id number] [place] [address] FOR [id number] 2017-Pres Medicare LIFE ent Supplement documented as of this encounter
--- OUTSIDE RECORDS SUMMARY | 2019-06-26 01:32 | XMS REPORT | Summary of Care ---
:1950 Author Organization [facility] Address [address] [place] [address] Care Team Providers Name Role Phone Aydee Chaney MD Unavailable 1, [facility] Unavailable Unavailable Shantal Strong MD Primary Care Provider Reason for Visit Reason Comments Follow-up nail care (Routine) Status Reason Specialty Diagnoses / Referred By Referred To Procedures Contact Contact Closed PO-LABORATORY DIRECTOR / Diagnoses f/up [facility] Podiatry Harini Calabrese Orthopedic Surgery Procedures CONSULT/REFERRAL ORTHOPAEDIC SURGERY FOLLOW-UP VISIT [address] YESICA Shepard [address] [place] [phone] Phone: Fax: Encounter Details Date Type Department Care Team Description 12/23/[address] [facility] Harini Zendejas Pain due to onychomycosis of toenails of both feet (Primary Dx); Diabetes- YESICA Shepard Keratoderma of foot, acquired; Multispecialty [facility] [address] Diabetic peripheral neuropathy associated with type 2 diabetes mellitus; [facility] [place], [place] Comprehensive diabetic foot examination, type 2 DM, encounter for; [place] [address] Diabetes mellitus type 2, insulin dependent [place], [place] [phone] [id number] [phone] Allergies Active Allergy Reactions Severity Noted Date [...] as of this encounter (statuses as of 12/23/2018) Medications Medication Sig Dispensed Refills Start Date End Date Status ASPIRIN (ASPIR-81 Take 81 mg by 0 Active ORAL)Indications: mouth daily. Coronary artery disease involving [place] heart without angina pectoris, unspecified vessel or lesion type fluocinonide 0.05 % Apply to scalp 60 mL 1 01/23/2017 Active solution BID rash. PROAIR HFA 90 Inhale 2 Puffs as 4 01/22/2017 Active mcg/actuation inhaler needed. ketoconazole 2 % cream Apply to area(s) 30 g 1 03/11/2017 Active daily. Insulin [place], Use as directed 4 360 Each 3 [...] 100 mg times daily. capsuleIndications: Recurrent UTI ciclopirox 8 % Apply to area(s) 6.6 mL 5 12/23/2018 Active solutionIndications: at bedtime. Apply Pain due to to Nails. onychomycosis of toenails of both feet documented as of this encounter (statuses as of 12/23/2018) Active Problems Problem Noted Date Onychomycosis 02/12/2017 Insulin pump status 11/05/2016 Type 2 diabetes mellitus with complication, with long-term current use of insulin Dyslipidemia 11/05/2016 Essential hypertension 11/05/2016 Vitamin D deficiency 11/05/2016 documented as of this encounter (statuses as of 12/23/2018) Immunizations Name Administration Dates Next Due Influenza [...] of this encounter Last Filed Vital Signs Vital Sign Reading Time Taken Comments Blood Pressure - - Pulse - - Temperature - - Respiratory Rate - - Oxygen Saturation - - Inhaled Oxygen Concentration - - Weight 67.9 kg (149 lb 9.6 oz) 12/23/2018 10:44 AM CDT Height 160 cm (5' 3") 12/23/2018 10:44 AM CDT Body Mass Index 26.5 12/23/2018 10:44 AM CDT documented in this encounter Progress Notes Harini Calabrese DPM - 12/23/2018 10:00 AM CDT CHIEF COMPLAINT: painful elongated toenails/calluses REFERRING PROVIDER: Torrie Britton MD Last Visit Date with PCP: 07/29/18 HISTORY OF PRESENT ILLNESS: Mary Bourne is a 67 year old female who complains of painful elongated toenails , both feet. She states that her nails grow abnormally which she believes is due to the way she walks. Patient has significant history of Type 2 IDDM and presents to clinic for diabetic foot evaluation. Patient denies history of pedal amputations or ulcerations, but has complaints of painful calluses. She notes that she feels abnormal sensations as if she is walking on sand when she is walking on her kitchen floors, butshe does have sensation. Her most recent A1c taken a month ago was 10.5 which she notes is lower than the one taken prior to that which was 11.1. Pt relates no other pedal problems at the moment. Interval History 12/23/18: Pt seen today for follow-up of painful elongated toenails, both feet in addition to painful calluses. She is concerned regarding her nail fungus. Patient notes that in the past she has used Nizoral cream for a year and it cleared their appearance. She says she no longer uses nail [place] as a result. She prefers open toed shoes. The patient relates no other pedal issues at the moment. REVIEW OF SYSTEMS: (-)=Negative; (+)=Positive Constitutional: (-) fever, (-) chills, (-) weight change Gastrointestinal: (-) nausea, (-) vomiting, (-) diarrhea, (-) constipation Integumentary: (-) open lesions (+) thickened, elongated toenails Neurological: (-) tingling, burning, numbness Past Medical History: Diagnosis Date Acid reflux Asthma CAD (coronary artery disease) Depression Diabetes mellitus 2004 type 2 H/O seasonal allergies Hearing loss Hepatitis A Hypercholesteremia Family History Problem Relation Age of Onset Diabetes Father Heart Father Multiple myeloma Mother Hypertension Mother Autoimmune other Sister Current Medications: Current Outpatient Medications Medication Sig Dispense Refill Nitrofurantoin&Nit. Macrocryst (MACROBID) 100 mg capsule Take 1 capsule by mouth 2 (two) times daily. 14 capsule 0 Diclofenac Sodium (VOLTAREN) 1 % gel Take 2-4 grams three times a day as needed for pain 100 g 3 flash glucose scanning reader (FREESTYLE [place]TA 14 DAY READER) Misc 1 Each daily. 1 Each 0 flash glucose sensor (FREESTYLE [place] 14 DAY SENSOR) Kit 1 Each every 14 ( fourteen) days. 2 Kit 5 insulin lispro, human, (HUMALOG U-100 INSULIN) 100 unit/mL injection inject 80 Units under the skin daily. Use as directed with insulin pump, Max dose 80 units daily 70 mL 1 evolocumab (REPATHA SURECLICK) 140 mg/mL PnIj inject 1 Cartridge under the skin every 2 (two) weeks. escitalopram oxalate (LEXAPRO) 20 mg tablet Take 1 tablet by mouth daily. 90 tablet 3 esomeprazole 40 mg capsule Take 1 capsule by mouth daily with breakfast. 90 capsule 3 metoprolol succinate XL 25 mg 24 hr tablet Take 1 tablet by mouth daily. 90 tablet 3 conjugated estrogens 0.625 mg/gram vaginal cream Insert 1 g into vagina SEE- INSTRUCTIONS. Apply small amount to vagina 3 times a week 30 g 1 glucagon (GLUCAGON EMERGENCY KIT, HUMAN,) 1 mg injection inject 1 mg under the skin as needed for Other (When low glucose below 50 and you are unable to swallow due to impaired consciousness). 1 Kit 1 blood sugar diagnostic (CONTOUR NEXT STRIPS) strip Use up to 4 times daily. E 11.8 360 Strip 3 ergocalciferol, vitamin d2, 50,000 unit capsule Take 1 capsule by mouth weekly. Once completed with 12 weeks start OTC Vitamin D 2000 IU daily 12 capsule 0 Insulin [place], Disposable, (ISSAC PEN NEEDLE) 32 gauge x 5/32" Ndle Use as directed 4 times daily 360 Each 3 ketoconazole 2 % cream Apply to area(s) daily. 30 g 1 PROAIR HFA 90 mcg/actuation inhaler Inhale 2 Puffs as needed. 4 fluocinonide 0.05 % solution Apply to scalp BID rash. 60 mL 1 ASPIRIN (ASPIR-81 ORAL) Take 81 mg by mouth daily. No current facility-administered medications for this visit. Social History Tobacco Use Smoking status: Never Smoker Smokeless tobacco: Never Used Substance Use Topics Alcohol use: No Allergies Allergen Reactions Ciprofloxacin Nausea and/or Vomiting Demerol [Meperidine Hcl] Nausea and/or Vomiting Erythromycin Nausea and/or Vomiting Pcn [Penicillins] Shortness of Breath Pyridium [Phenazopyridine Hcl] Nausea and/or Vomiting Sulfa (Sulfonamide Antibiotics) Diarrhea Atorvastatin Other - See comments Muscle pain Simvastatin Other - See comments Muscle pain POCT HBA1C (%) Date Value 10/16/2018 8.0 (A) 07/20/2018 10.5 (A) No components found for: A1C LOWER EXTREMITY PHYSICAL EXAM: Vasc: Pedal pulses palpable+ 2/4 Dorsalis Pedis bilaterally Pedal pulses palpable +2/4 Posterior Tibial bilaterally Capillary fill time < 3 sec bilaterally at test digits no varicosities noted Claudication:no Temperature changes: no Edema: no Neuro: Epicritic sensations intact bilaterally. Protective threshold intact at 10/10 pedal sites bilaterally as tested with 10- gram Duck WeinsteinMonofilament. Derm: Integument with normal turgor, texture and color and appears intact with no primary or secondary skin lesions Interdigital maceration not noted. Nails are elongated, hypertrophic, discolored and incurvated with subungual debris for toenails 1-5 bilaterally. HPK lesions noted to bilateral sub 5th metatarsal head, bilateral 5th metatarsal bases, left central plantar [place]eland bilateral plantar hallux IPJ's MSK: ROM of AJ/STJ/MTPJ WNL with no pain or crepitus All DF/PF/INV/EV muscle groups grossly intact with 5/5 muscle strength bilaterally Pedal deformities: digital contractures noted to right foot Non-traumatic amputation of foot or integral skeleton portion thereof: no ASSESSMENT: ICD-10-CM ICD-9-CM 1. Pain due to onychomycosis of toenails of both feet B35.1 110.1 M79.675 729.5 M79.674 2. Keratoderma of foot, acquired L85.1 701.1 3. Diabetic peripheral neuropathy associated with type 2 diabetes mellitus E11.42 250.60 357.2 4. Comprehensive diabetic foot examination, type 2 DM, encounter for E11.9 250.00 5. Diabetes mellitus type 2, insulin dependent E11.9 250.00 Z79.4 V58.67 PLAN: Patient evaluated and examined today Pt educated in detail on diabetic foot care Educational handout given to patient today in clinic to take home Nails sharply debrided in length and thickness x 10 without incident Paring of HPK x 7 with #10 blade without incident Recommend daily moisturizer with OTC lotion or cream to b/l feet avoiding areas between the toes to prevent maceration. Recommend daily maintenance of hyperkatoses with ramah board or PediEgg Advise patient to avoid barefoot walking Monitor feet closely for skin irritation or signs of infection Rx: Penlac 8% QHS Pt to RTC in 3 months for comprehensive diabetic foot exam, or sooner should any other urgent pedal problems arise prior to then. Scribe's Attestation IJim , am scribing for, and in the presence of, Harini Calabrese DPM who performed the services described here-in. Jim Perkins, December 23, 2018, 10:55 AM Physician's Attestation Harini De Santiago DPM, personally performed and/or ordered the services described in this documentation made by the Scribe in my presence, and it is both accurate and complete. All medical record entries made by the Scribe were at my direction and personally dictated by me. I have reviewed the chart and agree that the record accurately reflects my personal performance of the history , physical exam, assessment and plan. Harini Calabrese DPM [employer] Impaired Podiatric Medicine and Surgery Department of Orthopaedic Surgery & Rehabilitation 12/23/18 3:30 PM scoAngie vasquez - 12/23/2018 10:00 AM CDT Mary Bourne is a 68 year old female Chief Complaint Patient presents with Follow-up nail care Allergies have been reviewed with patient documented in this encounter Plan of Treatment Date Type Specialty Care Team Description 12/28/2018 Office Visit Internal Medicine Shantal Strong MD [address] [place] [address] [address] [phone] 12/31/2018 Offal Baler Visit Endocrinology Diabetes & MinaCharlene hurley RD Metabolism [address] [place] [phone] 01/19/2019 Office Visit Endocrinology Diabetes & Estefanía Schumacher MD Metabolism [address] [place] [address] 03/05/2019 Office Visit Vascular Surgery Beverly Benites MD [address] [place] [phone] 03/16/2019 Office Visit Dermatology Americo Wick MD [address] [place] [address] [id number] [place], [place] [phone] 03/31/2019 Office Visit Orthopedic Surgery Harini Calabrese DPM [address] [place] [address] [place], [place] [phone] 05/06/2019 Office Visit Cardiology Aydee Chaney MD [address] [place] [phone] 09/08/2019 Office Visit Pulmonary Disease Rajat Pacheco [address] [facility] [place] [address] [phone] Health Maintenance Due Date Last Done Comments [...] of this encounter Implants Implanted Type Area Political Research Scientist Device Shelf Model / Serial Identifier Expiration / Lot Date Lens, Martell #[id number] - [id number] LENS Right: Martell 01/16/2023 [id number] / Implanted: Qty: 1 on 11/12/2018 by Americo Lee MD at [facility] Eye [id number] / NA Lens, Martell #[id number] - [id number] LENS Left: Eye Martell 08/17/2019 [id number] / Implanted: Qty: 1 on 11/26/2018 by Americo Lee MD at [facility] [id number] / N/A documented as of this encounter Results Not on filedocumented in this encounter Visit Diagnoses Diagnosis Pain due to onychomycosis of toenails of both feet - Primary Keratoderma of foot, acquired Acquired keratoderma Diabetic peripheral neuropathy associated with type 2 diabetes mellitus Type II or unspecified type diabetes mellitus with neurological manifestations , not stated as uncontrolled Comprehensive diabetic foot examination, type 2 DM, encounter for Diabetes mellitus type 2, insulin dependent Type II or unspecified type diabetes mellitus without mention of complication, not stated as uncontrolled documented in this encounter Insurance Payer Benefit Plan Subscriber ID Effective Phone Address Type / Group Dates [facility] [id number] 2016-e [address] Medicare Adv - [place]ARE [place] [id number] [place] [address] FOR [id number] 2017-Pres Medicare LIFE ent Supplement ([place]) [place] [address] documented as of this encounter
--- OUTSIDE RECORDS SUMMARY | 2019-06-26 01:33 | XMS REPORT | Summary of Care ---
:1950 Author Organization [facility] Address [address] [place] [address] Care Team Providers Name Role Phone Aydee Chaney MD Unavailable , [facility] Unavailable Unavailable Shantal Strong MD Primary Care Provider Reason for Visit Reason Comments Follow-up 3 months Hypertension Refill Request Elbow Pain right x 3 weeks 08/26 Encounter Details Date Type Department Care Team Description 12/28/2018 Office Visit [facility] Pediatric Tae, Memory loss ( Primary Dx); and Adult Primary Shantal Perez MD Essential hypertension; Care- [address] Pain of left thumb; [address], [facility] [address] Tendonitis; [address] [place] [address] Dietary counseling; [place], [place] [phone] Sleep apnea, unspecified type; [phone] Visual disturbance; [phone] Other specified health status ; Vitamin D deficiency; Abnormal levels of other serum enzymes ; Type 2 diabetes mellitus with complication, with long-term current use of insulin Allergies Active Allergy Reactions Severity Noted Date [...] as of this encounter (statuses as of 12/31/2018) Medications Medication Sig Dispensed Refills Start Date End Date Status ASPIRIN (ASPIR-81 Take 81 mg by 0 Active ORAL)Indications: mouth daily. Coronary artery disease involving [place] heart without angina pectoris, unspecified vessel or lesion type fluocinonide 0.05 % Apply to scalp 60 mL 1 01/23/2017 Active solution BID rash. PROAIR HFA 90 Inhale 2 Puffs 4 01/22/2017 Active mcg/actuation as needed. inhaler ketoconazole 2 % Apply to 30 g 1 03/11/2017 Active cream area(s) daily. Insulin [place], Use as 360 Each 3 07/02/2017 Active Disposable, (ISSAC directed 4 PEN NEEDLE) 32 gauge times daily x " NdleIndications: Type 2 diabetes mellitus with complication, with long-term current use of insulin ergocalciferol, Take 1 capsule 12 capsule 0 10/20/2017 Active vitamin d2, 50,000 by mouth unit capsule weekly. Once completed with 12 weeks start OTC Vitamin D 2000 IU daily blood sugar Use up to 4 360 Strip 3 10/22/2017 Active diagnostic (CONTOUR times daily. E NEXT STRIPS) 11.8 stripIndications: Type 2 diabetes mellitus with complication, with long-term current use of insulin glucagon (GLUCAGON inject 1 mg 1 Kit 1 01/20/2018 Active EMERGENCY KIT, under the skin HUMAN,) 1 mg as needed for injectionIndications Other (When : Type 2 diabetes low glucose mellitus with renal below 50 and manifestations not you are unable at goal to swallow due to impaired consciousness) . conjugated estrogens Insert 1 g 30 g 1 03/13/2018 Active 0.625 mg/gram into vagina vaginal cream SEE-INSTRUCTIO NS. Apply small amount to vagina 3 times a week escitalopram oxalate Take 1 tablet 90 tablet 3 04/28/2018 Active (LEXAPRO) 20 mg by mouth tablet daily. metoprolol succinate Take 1 tablet 90 tablet 3 04/28/2018 Active XL 25 mg 24 hr by mouth tablet daily. esomeprazole 40 mg Take 1 capsule 90 capsule 3 04/28/2018 Active capsule by mouth daily with breakfast. evolocumab (REPATHA inject 1 0 Active SURECLICK) 140 mg/mL Cartridge PnIj under the skin every 2 (two) weeks. flash glucose 1 Each daily. 1 Each 0 07/20/2018 Active scanning reader (FREESTYLE RENETTA 14 DAY READER) MiscIndications: Type 2 diabetes mellitus with complication, with long-term current use of insulin flash glucose sensor 1 Each every 2 Kit 5 07/20/2018 Active (FREESTYLE RENETTA 14 14 (fourteen) DAY SENSOR) days. KitIndications: Type 2 diabetes mellitus with complication, with long-term current use of insulin insulin lispro, inject 80 70 mL 1 07/20/2018 Active human, (HUMALOG Units under U-100 INSULIN) 100 the skin unit/mL daily. Use as injectionIndications directed with : Type 2 diabetes insulin pump, mellitus with Max dose 80 complication, with units daily long-term current use of insulin Nitrofurantoin&Nit. Take 1 capsule 14 capsule 0 08/03/2018 Active Macrocryst by mouth 2 (MACROBID) 100 mg (two) times capsuleIndications: daily. Recurrent UTI ciclopirox 8 % Apply to 6.6 mL 5 12/23/2018 Active solutionIndications: area(s) at Pain due to bedtime. Apply onychomycosis of to Nails. toenails of both feet Diclofenac Sodium 1 Take 2-4 grams 100 g 3 12/28/2018 Active % gelIndications: three times a Tendonitis day as needed for pain Diclofenac Sodium Take 2-4 grams 100 g 3 07/29/2018 Discontinued (VOLTAREN) 1 % three times a 9 gelIndications: day as needed Right arm pain for pain documented as of this encounter (statuses as of 12/31/2018) Active Problems Problem Noted Date Onychomycosis 02/12/2017 Insulin pump status 11/05/2016 Type 2 diabetes mellitus with complication, with long-term current use of insulin Dyslipidemia 11/05/2016 Essential hypertension 11/05/2016 Vitamin D deficiency 11/05/2016 documented as of this encounter (statuses as of 12/31/2018) Immunizations Name Administration Dates Next Due Influenza [...] Sign Reading Time Taken Comments Blood Pressure 158/75 12/28/2018 7:13 AM CDT Pulse 70 12/28/2018 7:08 AM CDT Temperature 36.7 C (98 F) 12/28/2018 7:08 AM CDT Respiratory Rate 18 12/28/2018 7:08 AM CDT Oxygen Saturation 97% 12/28/2018 7:08 AM CDT Inhaled Oxygen Concentration - - Weight 68.4 kg (150 lb 14.4 oz) 12/28/2018 7:08 AM CDT Height - - Body Mass Index 26.73 12/23/2018 10:44 AM CDT documented in this encounter Patient Instructions Patient InstructionsSun Sanchez - 12/28/2018 7:00 AM CDTAsk your chiropractor about Active release. Dirty dozen 2019 list: Strawberries, spinach, kale, nectarine, apples, grapes, peaches, cherries, pears, tomatoes, celery, and potatoes. Try and buy these organic. To help wash off pesticides, rinse produce in baking soda. Use 1/2 a teaspoon for a small bowl or 1 teaspoon for a large bowl and soak for 3 minutes. Nonmeat protein options include: Soy proteins such as tofu, tempeh, textured vegetable protein, meatless crumbles Wheat protein such as seitan Nut butters (high in fats so no more than 2 tablespoons a day) or unsalted nuts Nondairy milks, such as soymilk, almond milk, coconut milk Nondairy yogurts, such as soy or almond based yogurts Cooked dried beans, peas, and lentils Vegetables such as broccoli, spinach, kale, sprouts, asparagus, and artichokes Grains such as quinoa (pronounced keen-everardo), ancient grains (barley, farro, amaranth, etc.) Try to eat less animal products(turkey, chicken, beef, pork, fish, eggs, milk, etc.) and more plant based products. Replace an animal product with a plant based protein at least 3 meals a week. Eggs from free range chickens are best. If you eat meat, grass fed meat is best. Good cholesterol is low. It can be increased by eating more nuts, whole grains, avocados, and fatty fish. Bad cholesterol (LDL) is high. Eat low fat diet, decrease oils in the diet, and add in foods from plant sources not animal sources. LDL comes from animals and animal products (meat, milk, etc.). Vitamin D level is low. To increase vitamin D levels start taking 5000IU vitamin D3 daily. B12 levels are low. Start taking 5000mcg daily over the counter in sublingual ( under the tongue) form (spray, tablet, or liquid drops). Will take methyl B12 or methylcobalamin form of B12 if possible. Zinc is low. Start taking zinc 25mg daily or 50mg every other day. Zinc containing foods include perkins, pumpkin seeds, grass fed beef, chickpeas, cocoa powder, cashews,yogurt, kefir, spinach, chicken, and oysters. B6 is low. Take B6 over the counter. You need to take 20mg pyridoxal-5- phosphate (active form of B6)daily, under the tongue if possible. Take at least 1/4 teaspoon of cinnamon daily. It can help with inflammation and help block the absorption of sugars. Green beans, okra, and beans such as black beans and kothari beans has something in them that blocks sugar absorption in the intestine. Eat more of these. [facility] [address], [place] [address] Advanced Nutrition [facility] [id number] Ensure protein max and premier protein contain 30g of protein and 1g of sugar. Purer Skin-[employer]rain [employer], Lumosity, and AARP are online brain games, alternatively can use workbooks [facility] schooled children, word searches, crossword puzzles, sudoku, but MUST work as many areas of thebrain as possible. The more critical thinking the better. Exercise-increases blood flow to the brain and improves memory. Can do this during commercials or actively through gym membership/iyzicoeakers or other set exercise times. Nutrition-the more nutrition your brain gets the better. Work on getting in 5 servings a vegetables a day and no more than 4 servings of fruit a day. Sleep-need 8 hours uninteruppted for optimal memory. Those who exercise on a regular basis tend to sleep better. OLLI is available at the [facility] wellness center. You can go by there and talk to Americo Borja about the classes offered. Beans belong under protein NOT starch. Add in more vegetables and fruits. Limit starchy vegetables to 1 serving a day total. Take in no more than 4 servings a fruit a day and at least 5 servings of vegetables a day. Plant based diet/Anti-inflammatory diet information/plant based recipes https://www.Hipcricket/ http://[employer]/ Search Google or VHT and multiple articles/sites will pop up -Common pitfalls of a plant based diet -Plant based on a budget Go to Https://www.[employer]ova[employer] by Dr. Daron Polk. You can take the VCS test for free athttps://www.vcstest.com/ Please call the office with VCS test results. If test is positive we will start patient on cholestyramine.Electronically signed by Sun Sanchez at 2018 8:26 AM CDT documented in this encounter Progress Notes Shantal Strong MD - 12/28/2018 7:00 AM CDT DOS: 12/28/2018 CC: Memory issues/ReCODE protocol HPI: Mary Bourne is a 68 year old female with PMH including has a past medical history of Acid reflux, Asthma, CAD (coronary artery disease), Depression, Diabetes mellitus (2004), H/O seasonal allergies, Hearing loss, Hepatitis A, and Hypercholesteremia. who is being seen today for Memory issues/ReCODE protocol. Since last visit patient has had eye surgery. She also saw vascular surgery. She had a repeat carotid duplex. It showed stenosis 50-79% and changed from the previous year. She had hard calcified plaques on both carotid arteries. ReCode visit # 1. Recommendations from most recent ReCODE labs drawn on 12/16/2018 : Recommendations: Potassium levels: Good. Eat more tomatoes. Calcium levels: Good. Albumin: Good. Add in more protein to diet. Cholesterol: HDL is good. Triglycerides are improving. LDL is high, continue with diet changes. Vitamin D: Did not check. To increase vitamin D levels start taking 5000IU vitamin D3 daily. Hscrp: Elevated. Possibly due to surgery. Homocysteine: Improving. B12 levels are low. Start taking 5000mcg daily. Folate is good. B6 is low. Start B6 20mg daily. Take at least 1/4 teaspoon of cinnamon daily. BMI, elevated hgbA1c,and fasting insulin levels: Insulin is elevated. Continue with low carb and sugar diet. A1c is elevated. It is improving, continue with diet. Thyroid: Good. Zinc and copper levels: Zinc is low. Start taking 25mg daily. [place] Cognitive Assessment score 12/28/2018 : Will do at next visit. Patient states she has pain in her right elbow. She has h/o tennis elbow in her left elbow. She worea brace with relief after some time. She has tried the brace on the right arm for about a week with some relief. She states she is now having upper arm pain. She states it feels like her arm is going to cramp up. She reports the brace leaving an indention on her arm. Patient states she woke up with a sharp pain in her left thumb. She states in the past the pain would jump around. She states she was told in the past that she had fibromyalgia. Patient states when she has appointments in the mornings her BP is high. Patient states she has eliminated boxed, canned, and processed foods. She states she eats mostly fresh vegetables and some frozen. She is eating gluten free breads. Patient states for about 5 years she has had issues with balance. She states when getting out of a car after it has been moving she feels unsteady on her feet. She states she gets the same feeling after walking the mall for 10- 15minutes. Patient states she falls asleep during the day. She has sleep apnea. She states she has not used herCPAP in about 5 weeks. She states she has noticed the difference since she stopped using her machine. Patient states she has a floater that has moved into her line of vision. She states it started on . Medications reviewed in EPIC, past medical history and social history and allergies reviewed. Review of Systems Constitutional: Positive for fatigue. Eyes: Positive for visual disturbance. Musculoskeletal: +right elbow pain +left thumb pain Neurological: Positive for dizziness. +memory problem PE: Blood pressure (!) 158/75, pulse 70, temperature 36.7 C (98 F), temperature source Oral, resp. rate 18, weight 150 lb 14.4 oz (68.4 kg), SpO2 97 %. Physical Exam Constitutional: She is oriented to person, place, and time. She appears well- developed and well-nourished. No distress. HENT: Head: Normocephalic and atraumatic. Right Ear: External ear normal. Left Ear: External ear normal. Nose: Nose normal. No tracheal deviation Eyes: Right eye exhibits no discharge. Left eye exhibits no discharge. No scleral icterus. Left and right eyelids normal. Neurological: She is alert and oriented to person, place, and time. No tremors. Normal gait. Skin: Skin is warm and dry. She is not diaphoretic. Psychiatric: She has a normal mood and affect. Her behavior is normal. Pleasant. Vitals reviewed. Results: reviewed in [facility] EMR. Education & Visit Time: this visit involved counseling and coordination of care that comprised more than 50% of the visit time. I spent at least 40 minutes total time with the patient. Of that time, at least 1 minutes was spent on exam, and at least 39 minutes was spent obtaining history and counseling the patient regarding risks and benefits of treatment, treatment options and prevention. A/P: Mary Bourne is a 68 year old female with PMH including has a past medical history of Acid reflux, Asthma, CAD (coronary artery disease), Depression, Diabetes mellitus (2004), H/O seasonal allergies, Hearing loss, Hepatitis A, and Hypercholesteremia. who is being seen today for Memory issues/ReCODE protocol. Memory loss (primary encounter diagnosis) Comment: Discussed ways to improve memory. Patient will continue with recode protocol. Plan: VITAMIN B1 (THIAMINE), WHOLE BLOOD, HIGH SENSITIVITY CRP, HOMOCYSTEINE, VITAMIN B6, PLASMA, VITAMIN B12, LEVEL, VITAMIN D, 25-OH, FOLATE, COMP. METABOLIC PANEL (93927), ESTRADIOL, LEVEL, CORTISOL AM, DEHYDROEPIANDROSTERONE SULFATE, LIPID PANEL (37889)(TOTAL CHOLESTEROL, TRIGLYCERIDES, HDL), INSULIN, LEVEL, GLYCOSYLATED HEMOGLOBIN (A1C), PROGESTERONE, LEVEL, THYROID STIMULATING HORMONE, FREE T4, FREE T3, COPPER, SERUM, ZINC, SERUM Essential hypertension Comment: Pts BP is high when she has morning appointments. Plan: Pt will monitor BP. Pain of left thumb Comment: unsure of cause. Will try voltaren gel. Plan: Diclofenac Sodium 1 % gel Tendonitis Comment: unsure of cause. Will try voltaren gel and patient will look into active release therapy. Plan: Diclofenac Sodium 1 % gel Dietary counseling Comment: Discussed healthy diet changes. Patient has eliminated processed foods. Plan: Gave references and handouts. Sleep apnea, unspecified type Comment: Pt reports falling asleep during the day. She has sleep apnea and is not using her CPAP machine. Plan: Use CPAP machine. Visual disturbance Comment: Pt reports seeing a floater in her right eye since cataract surgery. Plan: Pt will follow with opthalmology. Other specified health status Comment: has issues with memory. Working on improving this. Plan: HIGH SENSITIVITY CRP, VITAMIN B6, PLASMA, VITAMIN D, 25-OH, LIPID PANEL (56678)(TOTAL CHOLESTEROL, TRIGLYCERIDES, HDL), GLYCOSYLATED HEMOGLOBIN (A1C) Vitamin D deficiency Comment: need to monitor. Plan: VITAMIN D, 25-OH Abnormal levels of other serum enzymes Comment: "Prolonged exposure of endothelial cells to homocysteine reduces the activity of dimethylarginine dimethylaminohydrolase, the enzyme that degrades asymmetric dimethylarginine, an endogenous inhibitor of nitric oxide synthase; this impairs the production of nitric oxide. This may contribute toimpaired endothelium-dependent vasodilation of both conduit and resistance vessels." [ EVALUATION OF SERUM HOMOCYSTEINE AN INDEPENDENT RISK FACTOR FOR MYOCARDIAL INFARCTION IN YOUNG PATIENTS, National Journal of Medical Research, Donna et.al. 2012.] This in turn could lead to problems with memory. Will follow homocysteine level which is affected by B6 levels. Low B6 levels can lead to high homocysteine levels. Plan: VITAMIN B6, PLASMA, GLYCOSYLATED HEMOGLOBIN (A1C) Type 2 diabetes mellitus with complication, with long-term current use of insulin Comment: will monitor labs. Plan: LIPID PANEL (78245)(TOTAL CHOLESTEROL, TRIGLYCERIDES, HDL), GLYCOSYLATED HEMOGLOBIN (A1C) Plan of care, desired health behaviors, goals,& medication discussed with patient and educational resources and self management tools provided as appropriate. Patient/family/guardian voices understanding. Patient verbalized understanding & agrees to plan of care. Barriers to care: none Ability to manage care: good Return in about 6 weeks (around 02/08/2019) for balance problem, and 3 months for Memory labs follow up/ReCODE protocol follow up. Scribe's Attestation ISun , am scribing for, and in the presence of, Shantal Strong MD who performed the services described here-in. Sun Sanchez, December 28, 2018, 8:26 AM Physician's Attestation IShantal MD, personally performed the services described in this documentation , asscribed by, Sun Sanchez in my presence and it is both accurate and complete. Shantal Strong MD December 31, 2018, 12:07 PM documented in this encounter Plan of Treatment Date Type Specialty Care Team Description 01/19/2019 Office Visit Endocrinology Diabetes & Estefanía Schumacher MD Metabolism [address] [place] [address] [phone] 02/15/2019 Office Visit Internal Medicine Shantal Strong MD [address] [place] [address] Dr [address] [place] [address] [phone] 03/05/2019 Office Visit Vascular Surgery Beverly Benites MD [address] [place] [phone] 03/16/2019 Office Visit Dermatology Americo Wick MD [address] [place] [address] [id number] [place], [place] 794[address] 03/17/2019 Design Engineering Specialist Visit Endocrinology Diabetes & Mina, Charlene, RD Metabolism [address] [place] [address] [phone] 03/30/2019 Office Visit Internal Medicine Shantal Strong MD [address] [facility] [facility] [address] Hodge [address] [place] [address], [place] [address] [phone] 03/31/2019 Office Visit Orthopedic Surgery Harini Calabrese, YESICA [address] [place] [address] [phone] 05/06/2019 Office Visit Cardiology Aydee Chaney MD [address] HODGE [address] [place] [phone] 09/08/2019 Office Visit Pulmonary Disease Rajat Pacheco [address] [place] [address] Dr [address] [place] [phone] Name Type Priority Associated Diagnoses Order Schedule VITAMIN B1 (THIAMINE), WHOLE LAB Routine Memory loss Expected: BLOOD 04/02/2019 (Approximate), Expires: 01/01/2020 HIGH SENSITIVITY CRP LAB Routine Other specified health Expected: status 04/02/2019 Memory loss (Approximate), Expires: 01/01/2020 HOMOCYSTEINE LAB Routine Memory loss Expected: Essential hypertension 04/02/2019 (Approximate), Expires: 01/01/2020 VITAMIN B6, PLASMA LAB Routine Abnormal levels of Expected: other serum enzymes 04/02/2019 Other specified health (Approximate), status Expires: Memory loss 01/01/2020 VITAMIN B12, LEVEL LAB Routine Memory loss Expected: 04/02/2019 (Approximate), Expires: 01/01/2020 VITAMIN D, 25-OH LAB Routine Other specified health Expected: status 04/02/2019 Memory loss (Approximate), Vitamin D deficiency Expires: 01/01/2020 FOLATE LAB Routine Memory loss Expected: 04/02/2019 (Approximate), Expires: 01/01/2020 COMP. METABOLIC PANEL (42563) LAB Routine Memory loss Expected: 04/02/2019 (Approximate), Expires: 01/01/2020 ESTRADIOL, LEVEL LAB Routine Memory loss Expected: 04/02/2019 (Approximate), Expires: 01/01/2020 CORTISOL AM LAB Routine Memory loss Expected: 04/02/2019 (Approximate), Expires: 01/01/2020 DEHYDROEPIANDROSTERONE SULFATE LAB Routine Memory loss Expected: 04/02/2019 (Approximate), Expires: 01/01/2020 LIPID PANEL (04181)(TOTAL LAB Routine Other specified health Expected: CHOLESTEROL, TRIGLYCERIDES, HDL) status 04/02/2019 Memory loss (Approximate), Essential hypertension Expires: Type 2 diabetes 01/01/2020 mellitus with complication, with long-term current use of insulin INSULIN, LEVEL LAB Routine Memory loss Expected: 04/02/2019 (Approximate), Expires: 01/01/2020 GLYCOSYLATED HEMOGLOBIN (A1C) LAB Routine Abnormal levels of Expected: other serum enzymes 04/02/2019 Other specified health (Approximate), status Expires: Memory loss 01/01/2020 Type 2 diabetes mellitus with complication, with long-term current use of insulin PROGESTERONE, LEVEL LAB Routine Memory loss Expected: 04/02/2019 (Approximate), Expires: 01/01/2020 THYROID STIMULATING HORMONE LAB Routine Memory loss Expected: 04/02/2019 (Approximate), Expires: 01/01/2020 FREE T4 LAB Routine Memory loss Expected: 04/02/2019 (Approximate), Expires: 01/01/2020 FREE T3 LAB Routine Memory loss Expected: 04/02/2019 (Approximate), Expires: 01/01/2020 COPPER, SERUM LAB Routine Memory loss Expected: 04/02/2019 (Approximate), Expires: 01/01/2020 ZINC, SERUM LAB Routine Memory loss Expected: 04/02/2019 (Approximate), Expires: 01/01/2020 Health Maintenance Due Date Last Done Comments Osteoporosis Screening 2013 Medicare Wellness Visit 01/12/2019 01/12/2018 INFLUENZA VACCINE (#1) 2019 04/02/2018, 04/02/2018, 04/18/2017, Additional history exists Zoster [...] of this encounter Implants Implanted Type Area Oxyacetylene Welder Device Shelf Model / Serial Identifier Expiration / Lot Date Lens, Martell #[id number] - [id number] LENS Right: Martell 01/16/2023 [id number] / Implanted: Qty: 1 on 11/12/2018 by Americo Lee MD at [facility] [id number] / NA Lens, Martell #[id number] - [id number] LENS Left: Eye Martell 08/17/2019 [id number] / Implanted: Qty: 1 on 11/26/2018 by Americo Lee MD at [facility] [id number] / N/A documented as of this encounter Results Not on filedocumented in this encounter Visit Diagnoses Diagnosis Memory loss - Primary Essential hypertension Unspecified essential hypertension Pain of left thumb Pain in limb Tendonitis Enthesopathy of unspecified site Dietary counseling Dietary surveillance and counseling Sleep apnea, unspecified type Visual disturbance Unspecified visual disturbance Other specified health status Vitamin D deficiency Unspecified vitamin D deficiency Abnormal levels of other serum enzymes Type 2 diabetes mellitus with complication, with long-term current use of insulin documented in this encounter Insurance Payer Benefit Plan Subscriber ID Effective Phone Address Type / Group Dates [facility] [id number] 2016-[place] [address] Medicare Adv - MANAGED MEDICARE ADV nt [id number] [place] [address] FOR [id number] 2017-Pres Medicare LIFE ent Supplement ([place]) [place] [address] documented as of this encounter
--- OUTSIDE RECORDS SUMMARY | 2019-06-26 01:33 | XMS REPORT | Summary of Care ---
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 Colón [address] [place], [place] (Fax) [phone] Allergies Active Allergy Reactions Severity Noted Date [...] as of this encounter (statuses as of 01/19/2019) Medications Medication Sig Dispensed Refills Start Date End Date Status ASPIRIN (ASPIR-81 Take 81 mg by 0 Active ORAL)Indications: mouth daily. Coronary artery disease involving [place] heart without angina pectoris, unspecified vessel or lesion type fluocinonide 0.05 % Apply to scalp 60 mL 1 01/23/2017 Active solution BID rash. PROAIR HFA 90 Inhale 2 Puffs as 4 01/22/2017 Active mcg/actuation inhaler needed. ketoconazole 2 % cream Apply to area(s) 30 g 1 03/11/2017 Active daily. Insulin [place], Use as directed 4 360 Each 3 [...] with daily long-term current use of insulin Nitrofurantoin&Nit. Take 1 capsule by 14 capsule 0 08/03/2018 Active Macrocryst (MACROBID) mouth 2 (two) 100 mg times daily. capsuleIndications: Recurrent UTI ciclopirox 8 % Apply to area(s) 6.6 mL 5 12/23/2018 Active solutionIndications: at bedtime. Apply Pain due to to Nails. onychomycosis of toenails of both feet Diclofenac Sodium 1 % Take 2-4 grams 100 g 3 12/28/2018 Active gelIndications: three times a day Tendonitis as needed for pain documented as of this encounter (statuses as of 01/19/2019) Active Problems Problem Noted Date Onychomycosis 02/12/2017 Insulin pump status 11/05/2016 Type 2 diabetes mellitus with complication, with long-term current use of insulin Dyslipidemia 11/05/2016 Essential hypertension 11/05/2016 Vitamin D deficiency 11/05/2016 documented as of this encounter (statuses as of 01/19/2019) Immunizations Name Administration Dates Next Due Influenza [...] Sign Reading Time Taken Comments Blood Pressure 153/71 01/19/2019 10:52 AM CDT Pulse 71 01/19/2019 10:52 AM CDT Temperature - - Respiratory Rate 16 01/19/2019 10:52 AM CDT Oxygen Saturation - - Inhaled Oxygen Concentration - - Weight 67.6 kg (149 lb) 01/19/2019 10:52 AM CDT Height 157.5 cm (5' 2") 01/19/2019 10:52 AM CDT Body Mass Index 27.25 01/19/2019 10:52 AM CDT documented in this encounter Patient Instructions Patient InstructionsEstefanía Schumacher MD - 01/19/2019 10:30 AM CDTTo scan your sensor more than 7 times a dayElectronically signed by Estefanía Schumacher MD at 01/19 11:23 AM CDT documented in this encounter Progress Notes Estefanía Schumacher MD - 01/19/2019 10:30 AM CDT chief complaint: Type 2 diabetes mellitus-follow up HPI Patient is a 68 year old /White female who is here today for Diabetes Mellitus Type 2. Patient's diabetes is complicated by atherogenic diet, hyperlipidemia, hypertension and macrovascular complications: S/P 5 Vessel Coronary Artery Bypass Graft . Type 2 diabetes mellitus was Diagnosed in 2003. She has hx of poor control with A1C >10 in past 3-4 years. Patient first came to clinic in 2016 using insulin pump [employer] however patient did not know how to use pump for bolus, for about 6 months, she was switched from pump to basal/bolus regimen. Insulin pump restarted after training in 10/2017. ANNIE was in 09/2018 with A1C at 8.0. Her .night time basal rate was reduced in ANNIE due to hypoglycemia in AM She noticed glucose reading has been improving Patient has no acute problems today. Patient usually checks blood glucoses 1-2 times a day and also started freestyle renetta CGM. Patient has brought in the blood sugars/pump to be reviewed today. Average blood sugar during the day 171+ /- 60. Thepatient is still having problems at night/ early AM with hypoglycemia about 13% of time . Patient is compliant with medication regimen( pump/insulin bolus) as above Patient is better compliant with diet/exercise regimen. Dyslipidemia; Managed by Dr Chaney, cardiology. Statin caused side effects, Repatha started by cardiology. Also takes Vascepa 2 cap bid HTN: managed by cardiology DIABETIC HEALTH MAINTENANCE Last Ophthalmology visit was 2018, no advised Patient on FUNMI/ARB therapy - No Patient on ASA therapy - Yes. Patient on Statin/Fibrate therapy - No.( side effects) On repatha Received flu shot: Yes this season Patient instructed about daily feet exams, last sensation exam was 01/19/2019 Patient has received Nutrition/Diet/Diabetes Education on 08/2018 by CDE Patient's Medications START taking these medications No medications on file CONTINUE taking these medications which have NOT CHANGED ASPIRIN (ASPIR-81 ORAL) Take 81 mg by mouth daily. BLOOD SUGAR DIAGNOSTIC (CONTOUR NEXT STRIPS) STRIP Use up to 4 times daily. E 11.8 CICLOPIROX 8 % SOLUTION Apply to area(s) at bedtime. Apply to Nails. CONJUGATED ESTROGENS 0.625 MG/GRAM VAGINAL CREAM Insert 1 g into vagina SEE- INSTRUCTIONS. Apply small amount to vagina 3 times a week DICLOFENAC SODIUM 1 % GEL Take 2-4 grams three times a day as needed for pain ERGOCALCIFEROL, VITAMIN D2, 50,000 UNIT CAPSULE Take 1 capsule by mouth weekly. Once completed with 12 weeks start OTC Vitamin D 2000 IU daily ESCITALOPRAM OXALATE (LEXAPRO) 20 MG TABLET Take 1 tablet by mouth daily. ESOMEPRAZOLE 40 MG CAPSULE Take 1 capsule by mouth daily with breakfast. EVOLOCUMAB (REPATHA SURECLICK) 140 MG/ML PNIJ inject 1 Cartridge under the skin every 2 (two) weeks. FLASH GLUCOSE SCANNING READER (FREESTYLE RENETTA 14 DAY READER) MISC 1 Each daily. FLASH GLUCOSE SENSOR (FREESTYLE RENETTA 14 DAY SENSOR) KIT 1 Each every 14 ( fourteen) days. FLUOCINONIDE 0.05 % SOLUTION Apply to scalp BID rash. GLUCAGON (GLUCAGON EMERGENCY KIT, HUMAN,) 1 MG INJECTION inject 1 mg under the skin as needed for Other (When low glucose below 50 and you are unable to swallow due to impaired consciousness). INSULIN LISPRO, HUMAN, (HUMALOG U-100 INSULIN) 100 UNIT/ML INJECTION inject 80 Units under the skin daily. Use as directed with insulin pump, Max dose 80 units daily INSULIN NEEDLES, DISPOSABLE, (ISSAC PEN NEEDLE) 32 GAUGE X 5/32" NDLE Use as directed 4 times daily KETOCONAZOLE 2 % CREAM Apply to area(s) daily. METOPROLOL SUCCINATE XL 25 MG 24 HR TABLET Take 1 tablet by mouth daily. NITROFURANTOIN&NIT. MACROCRYST (MACROBID) 100 MG CAPSULE Take 1 capsule by mouth 2 (two) times daily. PROAIR HFA 90 MCG/ACTUATION INHALER Inhale 2 Puffs as needed. START taking Modified Medications as Prescribed No medications on file STOP taking these medications No medications on file HISTORY Past Medical History: Diagnosis Date Acid reflux Asthma CAD (coronary artery disease) Depression Diabetes mellitus 2004 type 2 H/O seasonal allergies Hearing loss Hepatitis A Hypercholesteremia Past Surgical History: Procedure Laterality Date ARTHROSCOPIC SHOULDER ROTATOR CUFF REPAIR CORONARY ARTERY BYPASS GRAFT HYSTERECTOMY OPEN CARPAL TUNNEL RELEASE Left 2006 OPEN CARPAL TUNNEL RELEASE Right 2003 PHACOEMULSIFICATION OF CATARACT WITH INTRAOCULAR LENS IMPLANT Right 2018 Surgeon: Americo Lee MD; Location: [facility] OR [facility] PHACOEMULSIFICATION OF CATARACT WITH INTRAOCULAR LENS IMPLANT Left 11/26/2018 Surgeon: Americo Lee MD; Location: [facility] OR [facility] RADICAL HYSTERECTOMY Family History Problem Relation Age of Onset Diabetes Father Heart Father Multiple myeloma Mother Hypertension Mother Autoimmune other Sister Social History Socioeconomic History Marital status: Spouse name: Not on file Number of children: Not on file Years of education: Not on file Highest education level: Not on file Occupational History Not on file Social Needs Financial resource strain: Not on file Food insecurity: Worry: Not on file Inability: Not on file Transportation needs: Medical: Not on file Non-medical: Not on file Tobacco Use Smoking status: Never Smoker Smokeless tobacco: Never Used Substance and Sexual Activity Alcohol use: No Drug use: No Sexual activity: Never Lifestyle Physical activity: Days per week: Not on file Minutes per session: Not on file Stress: Not on file Relationships Social connections: Talks on phone: Not on file Gets together: Not on file Attends amish service: Not on file Active member of club or organization: Not on file Attends meetings of clubs or organizations: Not on file Relationship status: Not on file Intimate partner violence: Fear of current or ex partner: Not on file Emotionally abused: Not on file Physically abused: Not on file Forced sexual activity: Not on file Other Topics Concern Not on file Social History Narrative She lives alone. She's retired. 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 REVIEW OF SYSTEMS Constitutional: denies weight change, denies fatigue and hair loss Eyes: denies blurry vision, denies diplopia and denies pain. Neck: denies pain, denies swollen glands Cardiovascular: denies chest pain , denies irregular pulse and denies palpitations. Respiratory: denies dyspnea on exertion and denies shortness of breath. Gastrointestinal: denies abdominal pain, denies constipation and denies diarrhea. Genitourinary: denies burning and denies dysuria. Hx of UTI Musculoskeletal: denies back pain, denies muscle pain and denies weakness. Skin: denies dry skin and denies hair changes. Neuro: denies numbness , denies tingling and denies tremor. Psych: negative. Endocrine:+ hypoglycemia denies goiter, denies hair loss, denies intolerance to cold, denies intolerance to heat, denies polydipsia, denies polyphagia and denies polyuria. PHYSICAL EXAM POCT GLU (mg/dL) Date Value 11/26/2018 98 CREATININE (mg/dL) Date Value 12/16/2018 1.29 (H) CHOL (mg/dL) Date Value 12/16/2018 293 (H) HDL (mg/dL) Date Value 12/16/2018 44 (L) LDL CHOL (mg/dL) Date Value 12/16/2018 201 (H) TRIG (mg/dL) Date Value 12/16/2018 241 (H) MICROAL/CR (ug/mmol creatinine) Date Value 07/29/2018 1,943 POCT HBA1C (%) Date Value 10/16/2018 8.0 (A) 07/20/2018 10.5 (A) HGB A1C (% NGSP) Date Value 12/16/2018 6.9 (H) BP (!) 153/71 | Pulse 71 | Resp 16 | Ht 5' 2" (1.575 m) | Wt 149 lb (67.6 kg ) | BMI 27.25 kg/m General: alert, oriented times three, no apparent distress, appearing age appropriate. Skin: skin color and turgor are normal Head: normocephalic, no masses, lesions, tenderness or abnormalities. Eyes: anicteric sclera, pupils are equally round and reactive to light. Neck: +acanthosis nigricans Thyroid: normal size and consistency to palaption Lungs: good diaphragmatic excursion, lungs clear to auscultation bilaterally. Heart: regular rate and rhythm, no murmurs, gallops or rubs. Abdomen: abdomen soft, non-tender, normal active bowel sounds, + obese. Neuro: unremarkable without focal findings. Extremities/Musculoskeletal: no cyanosis, no edema . Sensory exam of the foot is normal. Monofilament exam with sensation Right: 5/5 , Left: 5/5. Lesions absent Ulcers Absent Peripheral pulses present 2+. ASSESSMENT/PLAN 1. 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 Insulin pump titration -A1C (target=6-7%): 10.5 (3/)--8.0(5/)-->6.9(8/) improved from previous Glucose reading CGM AVG BG 171+/- 60 BG readings 1.8/day sensor AVG 168 % time CGM data captured 53% AVG scan 3/per day Glucose stat high 71% in Target range 16% low 13% I spent 30 minutes to download and review CGM with patient -early am hypoglycemia. -complication: +nephropathy +macrovascular: CAD s/p CABG -medication limitation: Trulicity low dose caused nausea Reported side effects with januvia, Invokana, Victoza ( nausea), metformin ( low dose and ER same) and Bydureon -diet: better -exercise: limited by joint pain -glucose range: Pump downloaded AVG BG 171+/- 60 AVG BG reading 1.8 /day BGs above target 36% BGs below target 13% AVG daily carbs 65+/- 23 AVg daily insulin 51.6+/-10.2 AVg basal 43.2U 84% AVg bolus 8.4U 16% current basal setting 0:00 1.85 6:00 2.10 bolus CHO 0:00 9.0 sensitivity 30 active time 4 hr target 0:00 120-120 Plan - continue Humalog with pump New basal setting 0:00 1.75 3:30 1.60 8:00 2.10 -reinterated compliance with CGM -urged compliance with diet/exercise 3. Dyslipidemia Lipid was above target Reports compliance with repatha Plan Continue follow up with cardiology 4. Essential hypertension Comment: BP in clinic was slightly about goal Plan: Per cardiology Prema Richardson RN - 01/19/2019 10:30 AM CDT Mary Bourne is a 68 year old female seen for a follow up visit for diabetes; Patient Active Problem List Diagnosis Insulin pump status Type 2 diabetes mellitus with complication, with long-term current use of insulin Dyslipidemia Essential hypertension Vitamin D deficiency Onychomycosis Current Outpatient Medications on File Prior to Visit Medication Sig Dispense Refill Diclofenac Sodium 1 % gel Take 2-4 grams three times a day as needed for pain 100 g 3 ciclopirox 8 % solution Apply to area(s) at bedtime. Apply to Nails. 6.6 mL 5 Nitrofurantoin&Nit. Macrocryst (MACROBID) 100 mg capsule Take 1 capsule by mouth 2 (two) times daily. 14 capsule 0 flash glucose scanning reader (FREESTYLE RENETTA 14 [...] 2000 IU daily 12 capsule 0 Insulin [place], Disposable, (ISSAC PEN NEEDLE) 32 gauge x [...] by mouth daily. No current facility-administered medications on file prior to visit. Level of pain is zero Location of pain n/a Appearance: healthy,alert,cooperative. This patient is accompanied in the office by her self. Medications and allergies reviewed with patient by QUAN Jacob. Patient will demonstrate three measures of preventative foot care: avoid going shoeless, daily cleaning and check, proper care of toe nails and proper foot wear. Met documented in this encounter Plan of Treatment Date Type Specialty Care Team Description 02/15/2019 Office Visit Internal Medicine Shantal Strong MD [address] [place] [address] Dr [address] [place] [address] [phone] 03/01/2019 Silo Operator Visit Fiber Optics Technician, Adc Cardio Fac 2, Adc Cardio Fac Room 03/05/2019 Office Visit Vascular Surgery Beverly Benites MD [address] [place] [address] [phone] 03/16/2019 Office Visit Dermatology Americo Wick MD [address] [place] [address] [id number] [place] [address] [phone] 03/17/2019 Vessel Manager Visit Endocrinology Diabetes & MinaCharlene hurley, RD Metabolism [address] [place] [address] [phone] 03/30/2019 Office Visit Internal Medicine Shantal Strong MD [address] [place] [address] Dr [address] [place] [address] [phone] 03/31/2019 Office Visit Orthopedic Surgery Harini Calabrese, YESICA [address] [place] [address] [phone] 05/06/2019 Office Visit Cardiology Aydee Chaney MD [address] [place] [phone] 06/01/2019 Office Visit Endocrinology Diabetes & SchumacherEstefanía MD Metabolism [address] [place], [place] [phone] 09/08/2019 Office Visit Pulmonary Disease Rajat Pacheco [facility] E [facility] [address] [place] [phone] Health Maintenance Due Date Last Done Comments [...] of this encounter Implants Implanted Type Area Chemistry Technical Officer Device Shelf Model / Serial Identifier Expiration / Lot Date Lens, Martell #[id number] - [id number] LENS Right: Martell 01/16/2023 SN60WF / Implanted: Qty: 1 on 11/12/2018 by Americo Lee MD at [facility] [id number] / NA Lens, Martell #[id number] - [id number] LENS Left: Eye Martell 08/17/2019 SN60WF / Implanted: Qty: 1 on 11/26/2018 by Americo Lee MD at [facility] [id number] / N/A documented as of this encounter Results Not on filedocumented in this encounter Visit Diagnoses Diagnosis 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
--- OUTSIDE RECORDS SUMMARY | 2019-06-26 01:33 | XMS REPORT | Summary of Care ---
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 Col[address] [place], [place] (Fax) [phone] Allergies Active Allergy Reactions [...] ORAL)Indications: mouth daily. Coronary artery disease involving [place] heart without angina pectoris, unspecified vessel or lesion type fluocinonide 0.05 % Apply to scalp 60 mL 1 01/23/2017 Active solution BID rash. PROAIR HFA 90 Inhale 2 Puffs as 4 01/22/2017 Active mcg/actuation inhaler needed. ketoconazole 2 % cream Apply to area(s) 30 g 1 03/11/2017 Active daily. Insulin [place], Use as directed 4 360 Each 3 [...] to clinic in 2016 using insulin pump [employer] however patient did not know how to [...] Right 2018 Surgeon: Americo Lee MD; Location: [facility] OR [facility] PHACOEMULSIFICATION OF CATARACT WITH INTRAOCULAR LENS IMPLANT Left 11/26/2018 Surgeon: Americo Lee MD; Location: [facility] OR [facility] RADICAL HYSTERECTOMY Family History Problem Relation Age [...] file Gets together: Not on file Attends baptism service: Not on file Active member of [...] retired. 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 REVIEW OF SYSTEMS Constitutional: [...] 2000 IU daily 12 capsule 0 Insulin [place], Disposable, (ISSAC PEN NEEDLE) 32 gauge x [...] Office Visit Internal Medicine Shantal Strong MD [address] [place] [address] Dr [address] [place] [address] [phone] 03/01/2019 Experience Planning Strategist Visit Shoe Stitcher Odd, Adc Cardio Fac 2, Adc Cardio Fac Room 03/05/2019 Office Visit Vascular Surgery Beverly Benites MD [address] [place] [address] [phone] 03/16/2019 Office Visit Dermatology Americo Wick MD [address] [place] [address] [id number] [place] [address] [phone] 03/17/2019 Community Mental Health Social Worker Visit Endocrinology Diabetes & MinaCharlene hurley, RD Metabolism [address] [place] [address] [phone] 03/30/2019 Office Visit Internal Medicine Shantal Strong MD [address] [place] [address] Dr [address] [place] [address] [phone] 03/31/2019 Office Visit Orthopedic Surgery Harini Calabrese, YESICA [address] [place] [address] [phone] 05/06/2019 Office Visit Cardiology Aydee Chaney MD [address] [facility] [facility] [place] [phone] 06/01/2019 Office Visit Endocrinology Diabetes & SchumacherEstefanía MD Metabolism [address] [place], [place] [address] 09/08/2019 Office Visit Pulmonary Disease Rajat Pacheco [facility] [address] [place], [place] [address] Health Maintenance Due Date Last Done Comments [...] of this encounter Implants Implanted Type Area Drafter Refrigeration Device Shelf Model / Serial Identifier Expiration / Lot Date Lens, Martell #Sn60wf - [id number] LENS Right: Martell 01/16/2023 SN60WF / Implanted: Qty: 1 on 11/12/2018 by Americo Lee MD at [facility] [id number] / NA Lens, Martell #Sn60wf - [id number] LENS Left: Eye Martell 08/17/2019 SN60WF / Implanted: Qty: 1 on 11/26/2018 by Americo Lee MD at [facility] [id number] / N/A documented as of this [...] Effective Phone Address Type / Group Dates [facility] [id number] 2016-Prese [address] Medicare Adv - MANAGED MEDICARE ADV nt [id number] [place] [address] FOR [id number] 2017-Pres Medicare LIFE ent Supplement ([place]) [place] [address] documented as of this encounter
--- OUTSIDE RECORDS SUMMARY | 2019-06-26 01:34 | XMS REPORT | Summary of Care ---
:1950 Author Organization [facility] - Health Address [address] [place] [address] Care Team Providers Name Role Phone Aydee Chaney MD Unavailable 1, Adc Lab Unavailable Unavailable Shantal Strong MD Primary Care Provider Encounter Details Date Type Department Care Team Description 01/19/2019 Orders Only [facility] Doctor Unassigned, No [address] [facility] [place] [address] Allergies Active Allergy Reactions Severity Noted Date [...] as of this encounter (statuses as of 01/21/2019) Medications Medication Sig Dispensed Refills Start Date End Date Status ASPIRIN (ASPIR-81 Take 81 mg by 0 Active ORAL)Indications: mouth daily. Coronary artery disease involving [place] heart without angina pectoris, unspecified vessel or lesion type fluocinonide 0.05 % Apply to scalp 60 mL 1 01/23/2017 Active solution BID rash. PROAIR HFA 90 Inhale 2 Puffs as 4 01/22/2017 Active mcg/actuation inhaler needed. ketoconazole 2 % cream Apply to area(s) 30 g 1 03/11/2017 Active daily. Insulin [place], Use as directed 4 360 Each 3 [...] as of this encounter (statuses as of 01/21/2019) Active Problems Problem Noted Date Onychomycosis 02/12/2017 Insulin pump status 11/05/2016 Type 2 diabetes mellitus with complication, with long-term current use of insulin Dyslipidemia 11/05/2016 Essential hypertension 11/05/2016 Vitamin D deficiency 11/05/2016 documented as of this encounter (statuses as of 01/21/2019) Immunizations Name Administration Dates Next Due Influenza [...] Office Visit Internal Medicine Shantal Strong MD [address] [place] [address] Dr Hodge [address] [place] [address] [phone] 03/01/2019 Job Spotter Visit Transit Coach Operator, Adc Cardio Fac 2, Adc Cardio Fac Room 03/05/2019 Office Visit Vascular Surgery Beverly Benites MD [address] [place] [phone] 03/16/2019 Office Visit Dermatology Americo Wick MD [address] [place] [address] DS2808 [place], [place] [phone] 03/17/2019 Mud Boss Visit Endocrinology Diabetes & MinaCharlene hurley RD Metabolism [address] [place] [address] [phone] 03/30/2019 Office Visit Internal Medicine Shantal Strong MD [address] [place] [address] Dr Hodge [address] [place] [address] [phone] 03/31/2019 Office Visit Orthopedic Surgery Harini Calabrese, YESICA [address] [place], [place] [address] 05/06/2019 Office Visit Cardiology Aydee Chaney MD [address] [place] [address] DR HODGE [address] [place] [phone] [phone] 06/01/2019 Office Visit Endocrinology Diabetes & SchumacherEstefanía MD Metabolism [address] [place] [address] [phone] 09/08/2019 Office Visit Pulmonary Disease Rajat Pacheco [address] [place] [address] Dr Hodge [address] [place] [address] [phone] Health Maintenance Due Date Last Done Comments Osteoporosis Screening 2013 Medicare Wellness Visit 01/12/2019 01/12/2018 INFLUENZA VACCINE (#1) 2019 04/02/2018, 04/02/2018, 04/18/2017, Additional history exists Zoster Recombinant Vaccine 04/28/2019 02/16/2014 Postponed from ([employer]) (2 of 3) 04/13/2014 (Insurance / Financial) MAMMOGRAM 05/25/2019 05/25/2018, 10/21/2016 HgA1C 06/18/2019 12/16/2018, 10/16/2018, 07/20/2018, Additional history exists URINE MICROALBUMIN 07/30/2019 07/29/2018, 10/15/2017 EYE EXAM 08/12/2019 08/11/2018, 02/10/2018, 01/19/2018, Additional history exists CREATININE (SERUM) 12/17/2019 12/16/2018, 11/05/2018, 07/29/2018, Additional history exists LDL-C 12/17/2019 12/16/2018, 07/29/2018, 10/15/2017, Additional history exists FOOT EXAM 01/20/2020 01/19/2019, 01/19/2019, 07/20/2018, Additional history exists COLONOSCOPY 09/21/2023 09/20/2013 DTaP,Tdap,and Td Vaccines 06/15/2024 06/15/2014 (2 - Td) PNEUMOCOCCAL VACCINES 65+ Completed 02/17/2016, 04/06/2015, 02/15/2014, Additional history exists HEPATITIS C (HCV) SCREEN Completed 07/29/2018 documented as of this encounter Implants Implanted Type Area Systems Applications Programming Lead Device Shelf Model / Serial Identifier Expiration / Lot Date Lens, Martell #Sn60wf - [id number] LENS Right: Martell 01/16/2023 SN60WF / Implanted: Qty: 1 on 11/12/2018 by Americo Lee MD at [facility] Eye [id number] / NA Lens, Martell #[id number] - [id number] LENS Left: Eye Martell 08/17/2019 SN60WF / Implanted: Qty: 1 on 11/26/2018 by Americo Lee MD at [facility] [id number] / N/A documented as of this encounter Procedures Procedure Name Priority Date/Time Associated Diagnosis Comments DIABETES TESTING Routine 01/19/2019 12:01 AM CDT REPORTS documented in this encounter Results Not on filedocumented in this encounter Insurance Payer Benefit Plan Subscriber ID Effective Phone Address Type / Group Dates [facility] [id number] 2016-[place] [address] Medicare Adv - MANAGED MEDICARE ADV nt [id number] [place] [address] FOR [id number] 2017-Pres Medicare LIFE ent Supplement documented as of this encounter
--- OUTSIDE RECORDS SUMMARY | 2019-06-26 01:35 | XMS REPORT | Summary of Care ---
:1950 Author Organization [facility] Address [address] [place] [address] Care Team Providers Name Role Phone Aydee Chaney MD Unavailable 1, Adc Lab Unavailable Unavailable Shantal Strong MD Primary Care Provider Reason for Visit Reason Comments Refill Request Encounter Details Date Type Department Care Team Description 01/26/2019 Refill [facility] Endocrinology- Estefanía Schumacher MD Refill Request [address] Professional Office [address] [phone] [address] [place] [address] Allergies Active Allergy Reactions Severity Noted [...] as of this encounter (statuses as of 01/26/2019) Medications Medication Sig Dispensed Refills Start Date End Date Status ASPIRIN (ASPIR-81 Take 81 mg by 0 Active ORAL)Indications: mouth daily. Coronary artery disease involving [place] heart without angina pectoris, unspecified vessel or lesion type fluocinonide 0.05 % Apply to scalp 60 mL 1 01/23/2017 Active solution BID rash. PROAIR HFA 90 Inhale 2 Puffs 4 01/22/2017 Active mcg/actuation as needed. inhaler ketoconazole 2 % Apply to 30 g 1 03/11/2017 Active cream area(s) daily. Insulin [place], Use as 360 Each 3 07/02/2017 Active Disposable, (ISSAC directed 4 PEN NEEDLE) 32 gauge times daily x 5" NdleIndications: Type 2 diabetes mellitus with complication, [...] 1 Each 0 07/20/2018 Active scanning reader ([employer] RENETTA 14 DAY READER) MiscIndications: Type 2 [...] a Tendonitis day as needed for pain FREESTYLE RENETTA 14 1 Each every 2 Kit 5 01/26/2019 Active DAY SENSOR 14 (fourteen) KitIndications: Type days. DX:E11.9 2 diabetes mellitus with complication, with long-term current use of insulin flash glucose sensor 1 Each every 2 Kit 5 07/20/2018 Discontinued (FREESTYLE RENETTA 14 14 (fourteen) 9 DAY SENSOR) days. KitIndications: Type 2 diabetes mellitus with complication, with long-term current use of insulin documented as of this encounter (statuses as of 01/26/2019) Active Problems Problem Noted Date Onychomycosis 02/12/2017 Insulin pump status 11/05/2016 Type 2 diabetes mellitus with complication, with long-term current use of insulin Dyslipidemia 11/05/2016 Essential hypertension 11/05/2016 Vitamin D deficiency 11/05/2016 documented as of this encounter (statuses as of 01/26/2019) Immunizations Name Administration Dates Next Due Influenza [...] Office Visit Internal Medicine Shantal Strong MD [address] [place] [address] Dr [address] [place] [address] [phone] 03/01/2019 Vaccine Specialist Visit Car Pick Up Driver, Adc Cardio Fac 2, Adc Cardio Fac Room 03/05/2019 Office Visit Vascular Surgery Beverly Benites MD [address] [place] [phone] 03/16/2019 Office Visit Dermatology Americo Wick MD [address] [place] [id number] [place] [address] 03/17/2019 Medical Affairs Director Visit Endocrinology Diabetes & MinaCharlene hurley RD Metabolism [address] [place] [address] [phone] 03/30/2019 Office Visit Internal Medicine Shantal Strong MD [address] [place] [address] Dr Hodge [address] [place] [address] [phone] 03/31/2019 Office Visit Orthopedic Surgery Harini Calabrese DPM [address] [place], [place] [address] 05/06/2019 Office Visit Cardiology Aydee Chaney MD [facility] HOSPTAL [address] [phone] 06/01/2019 Office Visit Endocrinology Diabetes & Estefanía Schumacher MD Metabolism [address] [place] [address] [phone] 09/08/2019 Office Visit Pulmonary Disease Rajat Pacheco [address] [place] [address] [place] [address] [phone] Health Maintenance Due Date Last Done Comments [...] of this encounter Implants Implanted Type Area Temperer Device Shelf Model / Serial Identifier Expiration / Lot Date Lens, Martell #Sn60wf - [id number] LENS Right: Martell 01/16/2023 SN60WF / Implanted: Qty: 1 on 11/12/2018 by Americo Lee MD at [facility] Eye [id number] / NA Lens, Martell #Sn60wf - [id number] LENS Left: Eye Martell 08/17/2019 SN60WF / Implanted: Qty: 1 on 11/26/2018 by Americo Lee MD at [facility] [id number] / N/A documented as of this encounter Results Not on filedocumented in this encounter Visit Diagnoses Diagnosis Type 2 diabetes mellitus with complication, with long-term current use of insulin documented in this encounter Insurance Payer Benefit Plan Subscriber ID Effective Phone Address Type / Group Dates [facility] [id number] 2016-[place]ore[place] [address] Medicare Adv - MANAGED MEDICARE ADV nt [id number] [place] [address] FOR [id number] 2017-Pres Medicare LIFE ent Supplement documented as of this encounter
--- OUTSIDE RECORDS SUMMARY | 2019-06-26 01:35 | XMS REPORT | Summary of Care ---
:1950 Author Organization [facility] Address [address] [place] [address] Care Team Providers Name Role Phone Aydee Chaney MD Unavailable 1, Adc Lab Unavailable Unavailable Shantal Strong MD Primary Care Provider Reason for Referral (Routine) Status Reason Specialty Diagnoses / Referred By Referred To Procedures Contact Contact New Request Cardiology Diagnoses Bilateral carotid artery stenosis Dyslipidemia S/P CABG (coronary artery bypass graft) Cerebrovascular accident (CVA), unspecified mechanism Chaney, Sendil Procedures CARDIO LOOP MONITOR MD Kayla [address] [place] [phone] (Routine) Status Reason Specialty Diagnoses / Referred By Referred To Procedures Contact Contact New Request Cardiology Diagnoses Bilateral carotid artery stenosis Dyslipidemia S/P CABG (coronary artery bypass graft) Cerebrovascular accident (CVA), unspecified mechanism Chaney, Sendil Procedures ECHO ROUTINE W/DOPPLER COLOR Preferred Location: [facility] MD Kayla [address] [place] [phone] Reason for Visit Reason Comments Other Encounter Details Date Type Department Care Team Description 01/29/2019 Telephone [facility] CardiologyShiv Sendil K.H., MD [facility] [address] [place] [address] [place] [phone] [place] [address] [phone] Allergies Active Allergy Reactions Severity Noted Date [...] as of this encounter (statuses as of 02/01/2019) Medications Medication Sig Dispensed Refills Start Date End Date Status ASPIRIN (ASPIR-81 Take 81 mg by 0 Active ORAL)Indications: mouth daily. Coronary artery disease involving [place] heart without angina pectoris, unspecified vessel or lesion type fluocinonide 0.05 % Apply to scalp 60 mL 1 01/23/2017 Active solution BID rash. PROAIR HFA 90 Inhale 2 Puffs as 4 01/22/2017 Active mcg/actuation inhaler needed. ketoconazole 2 % cream Apply to area(s) 30 g 1 03/11/2017 Active daily. Insulin [place], Use as directed 4 360 Each 3 [...] a day Tendonitis as needed for pain FREESTYLE RENETTA 14 DAY 1 Each every 14 2 Kit 5 01/26/2019 Active SENSOR KitIndications: (fourteen) days. Type 2 diabetes DX:E11.9 mellitus with complication, with long-term current use of insulin documented as of this encounter (statuses as of 02/01/2019) Active Problems Problem Noted Date Onychomycosis 02/12/2017 Insulin pump status 11/05/2016 Type 2 diabetes mellitus with complication, with long-term current use of insulin Dyslipidemia 11/05/2016 Essential hypertension 11/05/2016 Vitamin D deficiency 11/05/2016 documented as of this encounter (statuses as of 02/01/2019) Immunizations Name Administration Dates Next Due Influenza [...] Treatment Date Type Specialty Care Team Description 02/02/2019 Office Visit Internal Medicine Shantal Strong MD [address] [place] [address] Dr [address] [place] [address] [phone] 02/11/2019 Laboratory Only Storage Administrator, Adc Cardio Fac 1, Adc Cardio Fac Room 03/01/2019 Senior Attorney Visit Storage Administrator, Adc Cardio Fac 2, Adc Cardio Fac Room 03/05/2019 Office Visit Vascular Surgery Beverly Benites MD [address] [place] [address] [phone] 03/16/2019 Office Visit Dermatology Americo Wick MD [address] [place] [address] LE9225 [place] [address] [phone] 03/17/2019 Stove Fitter Visit Endocrinology Diabetes & MinaCharlene hurley, RD Metabolism [address] [place] [address] [phone] 03/30/2019 Office Visit Internal Medicine Shantal Strong MD [address] [place] [address] Dr Hodge [address] [place] [address] [phone] 03/31/2019 Office Visit Orthopedic Surgery Harini Calabrese, YESICA [address] [place] [address] [phone] 05/06/2019 Office Visit Cardiology Aydee Chaney MD [address] [facility] [address] HODGE [address] [place] [address] [phone] 06/01/2019 Office Visit Endocrinology Diabetes & Estefanía Schumacher MD Metabolism [address] [place], [place] [phone] 09/08/2019 Office Visit Pulmonary Disease Rajat Pacheco [address] [facility] [place] [address] Name Type Priority Associated Diagnoses Order Schedule CARDIO LOOP HEART STATION Routine Bilateral carotid 1 Occurrences starting MONITOR artery stenosis 01/29/2019 until Dyslipidemia 01/30/2020 S/P CABG (coronary artery bypass graft) Cerebrovascular accident (CVA), unspecified mechanism Health Maintenance Due Date Last Done Comments [...] of this encounter Implants Implanted Type Area Swimming Pool Installer And Servicer Device Shelf Model / Serial Identifier Expiration / Lot Date Lens, Martell #Sn60wf - [id number] LENS Right: Martell 01/16/2023 SN60WF / Implanted: Qty: 1 on 11/12/2018 by Americo Lee MD at [facility] Eye [id number] / NA Lens, Martell #Sn60wf - [id number] LENS Left: Eye Martell 08/17/2019 SN60WF / Implanted: Qty: 1 on 11/26/2018 by Americo Lee MD at [facility] [id number] / N/A documented as of this encounter Results Not on filedocumented in this encounter Visit Diagnoses Diagnosis Bilateral carotid artery stenosis - Primary Occlusion and stenosis of multiple and bilateral precerebral arteries without mention of cerebral infarction Dyslipidemia Other and unspecified hyperlipidemia S/P CABG (coronary artery bypass graft) Postsurgical aortocoronary bypass status Cerebrovascular accident (CVA), unspecified mechanism documented in this encounter Insurance Payer Benefit Plan Subscriber ID Effective Phone Address Type / Group Dates [facility] [id number] 2016-Pre[place] [address] Medicare Adv - MANAGED MEDICARE ADV nt [id number] [place] [address] FOR [id number] 2017-Pres Medicare LIFE ent Supplement documented as of this encounter
--- OUTSIDE RECORDS SUMMARY | 2019-06-26 01:36 | XMS REPORT | Summary of Care ---
:1950 Author Organization [facility] Address [address] [place] [address] Care Team Providers Name Role Phone Aydee Chaney MD Unavailable , Adc Lab Unavailable Unavailable Shantal Strong MD Primary Care Provider Reason for Referral (Routine) Status Reason Specialty Diagnoses / Referred By Referred To Procedures Contact Contact New Request Cardiology Diagnoses Bilateral carotid artery stenosis Dyslipidemia S/P CABG (coronary artery bypass graft) Cerebrovascular accident (CVA), unspecified mechanism Aydee Chaney Procedures CARDIO LOOP MONITOR MD Kayla [address] [place] [address] Reason for Visit Reason Comments NURSE VISIT pt enrolled for 30 day event monitor, will pickling solution maker from office Encounter Details Date Type Department Care Team Description 02/01/2019 Office Visit [facility] Bri Thomas MD Palpitations (Primary Dx); Cardiology- [address] Bilateral carotid artery stenosis; [facility] Dyslipidemia; Drive, [address] S/P CABG (coronary artery bypass graft); [place], [place] Cerebrovascular accident (CVA), unspecified mechanism [phone] Allergies Active Allergy Reactions Severity Noted Date [...] as of this encounter (statuses as of 02/02/2019) Medications Medication Sig Dispensed Refills Start Date End Date Status ASPIRIN (ASPIR-81 Take 81 mg by 0 Active ORAL)Indications: mouth daily. Coronary artery disease involving [place] heart without angina pectoris, unspecified vessel or lesion type fluocinonide 0.05 % Apply to scalp 60 mL 1 01/23/2017 Active solution BID rash. PROAIR HFA 90 Inhale 2 Puffs as 4 01/22/2017 Active mcg/actuation inhaler needed. ketoconazole 2 % cream Apply to area(s) 30 g 1 03/11/2017 Active daily. Insulin [place], Use as directed 4 360 Each 3 [...] as of this encounter (statuses as of 02/02/2019) Active Problems Problem Noted Date Onychomycosis 02/12/2017 Insulin pump status 11/05/2016 Type 2 diabetes mellitus with complication, with long-term current use of insulin Dyslipidemia 11/05/2016 Essential hypertension 11/05/2016 Vitamin D deficiency 11/05/2016 documented as of this encounter (statuses as of 02/02/2019) Immunizations Name Administration Dates Next Due Influenza [...] Signs Not on filedocumented in this encounter Progress Notes Lucille Pennington RN - 02/01/2019 9:00 AM CDTPatient enrolled for 30-day event monitor through [employer]. Instructed to pickling solution maker monitor from officeand apply at home; understanding verbalized via teach back. documented in this encounter Plan of Treatment Date Type Specialty Care Team Description 02/11/2019 Laboratory Only Metal Sprayer Production, Adc Cardio Fac 1, Adc Cardio Fac Room 03/01/2019 Production Supervisor Visit Metal Sprayer Production, Adc Cardio Fac 2, Adc Cardio Fac Room 03/05/2019 Office Visit Vascular Surgery Beverly Benites MD [address] [place] [address] [phone] 03/16/2019 Office Visit Dermatology Americo Wick MD [address] [place] [address] AI7640 [place], [place] 333605 03/17/2019 Shoe Polisher Visit Endocrinology Diabetes & Mina, Charlene, RD Metabolism [address] [place], [place] 375953 03/30/2019 Office Visit Internal Medicine Shantal Strong MD [address] [place] [address] [address] [place], [place] [address]85 03/31/2019 Office Visit Orthopedic Surgery Harini Calabrese DPM [address] [place] [address] [place] [address] [phone] 05/06/2019 Office Visit Cardiology Aydee Chaney MD [address] [address] [facility] [place] [place] [phone] 06/01/2019 Office Visit Endocrinology Diabetes & SchumacherEstefanía MD Metabolism [address] [place] [address] [phone] 09/08/2019 Office Visit Pulmonary Disease Rajat Pacheco [address] [facility] [address] Health Maintenance Due Date Last Done Comments [...] of this encounter Implants Implanted Type Area Filter Washer Device Shelf Model / Serial Identifier Expiration / Lot Date Lens, Martell #Sn60wf - [id number] LENS Right: Martell 01/16/2023 SN60WF / Implanted: Qty: 1 on 11/12/2018 by Americo Lee MD at [facility] Eye [id number] / NA Lens, Martell #Sn60wf - [id number] LENS Left: Eye Martell 08/17/2019 SN60WF / Implanted: Qty: 1 on 11/26/2018 by Americo Lee MD at [facility] [id number] / N/A documented as of this encounter Results Not on filedocumented in this encounter Visit Diagnoses Diagnosis Palpitations - Primary Bilateral carotid artery stenosis Occlusion and stenosis of multiple and bilateral precerebral arteries without mention of cerebral infarction Dyslipidemia Other and unspecified hyperlipidemia S/P CABG (coronary artery bypass graft) Postsurgical aortocoronary bypass status Cerebrovascular accident (CVA), unspecified mechanism documented in this encounter Insurance Payer Benefit Plan Subscriber ID Effective Phone Address Type / Group Dates [facility] [id number] 2016-Pre[place] [address] Medicare Adv - MANAGED MEDICARE ADV nt [id number] [place] [address] FOR [id number] 2017-Pres Medicare LIFE ent Supplement documented as of this encounter
--- OUTSIDE RECORDS SUMMARY | 2019-06-26 01:37 | XMS REPORT | Summary of Care ---
:1950 Author Organization [facility] - Health Address [address] [place] [address] Care Team Providers Name Role Phone Aydee Chaney MD Unavailable 1, Adc Lab Unavailable Unavailable Shantal Strong MD Primary Care Provider Encounter Details Date Type Department Care Team Description 02/01/2019 Orders Only [facility] Doctor Unassigned, No [address] [facility] [place] [place] [address] Allergies Active Allergy Reactions Severity Noted Date [...] as of this encounter (statuses as of 02/05/2019) Medications Medication Sig Dispensed Refills Start Date End Date Status ASPIRIN (ASPIR-81 Take 81 mg by 0 Active ORAL)Indications: mouth daily. Coronary artery disease involving [place] heart without angina pectoris, unspecified vessel or lesion type fluocinonide 0.05 % Apply to scalp 60 mL 1 01/23/2017 Active solution BID rash. PROAIR HFA 90 Inhale 2 Puffs as 4 01/22/2017 Active mcg/actuation inhaler needed. ketoconazole 2 % cream Apply to area(s) 30 g 1 03/11/2017 Active daily. Insulin [place], Use as directed 4 360 Each 3 [...] as of this encounter (statuses as of 02/05/2019) Active Problems Problem Noted Date Onychomycosis 02/12/2017 Insulin pump status 11/05/2016 Type 2 diabetes mellitus with complication, with long-term current use of insulin Dyslipidemia 11/05/2016 Essential hypertension 11/05/2016 Vitamin D deficiency 11/05/2016 documented as of this encounter (statuses as of 02/05/2019) Immunizations Name Administration Dates Next Due Influenza [...] Specialty Care Team Description 02/11/2019 Laboratory Only Nail Kegger, Adc Cardio Fac 1, Adc Cardio Fac Room 03/01/2019 Tank Bottom Assembler Visit Nail Kegger, Adc Cardio Fac 2, Adc Cardio Fac Room 03/05/2019 Office Visit Vascular Surgery Beverly Benites MD [address] [place] [phone] 03/16/2019 Office Visit Dermatology Americo Wick MD [address] [facility] [id number] [place] [address] [phone] 03/17/2019 Tower Switch Operator Visit Endocrinology Diabetes & MinaCharlene hurley RD Metabolism [address] [place] [address] [phone] 03/30/2019 Office Visit Internal Medicine Shantal Strong MD [address] [place] [address] Dr [address] [place] [address] [phone] 03/31/2019 Office Visit Orthopedic Surgery Harini Calabrese DPM [address] [facility] [place] [place] [address] 05/06/2019 Office Visit Cardiology Aydee Chaney MD [facility] HODGE [address] [place] [phone] 06/01/2019 Office Visit Endocrinology Diabetes & SchumacherEstefanía MD Metabolism [address] [place] [address] [phone] 09/08/2019 Office Visit Pulmonary Disease Rajat Pacheco [address] [place] [address] Dr Hodge [address] [place] [address] [phone] Health Maintenance Due Date Last Done Comments [...] of this encounter Implants Implanted Type Area Bone Char Puller Device Shelf Model / Serial Identifier Expiration / Lot Date Lens, Martell #Sn60wf - [id number] LENS Right: Martell 01/16/2023 SN60WF / Implanted: Qty: 1 on 11/12/2018 by Americo Lee MD at [facility] Eye [id number] / NA Lens, Martell #[id number] - [id number] LENS Left: Eye Martell 08/17/2019 SN60WF / Implanted: Qty: 1 on 11/26/2018 by Americo Lee MD at [facility] [id number] / N/A documented as of this encounter Procedures Procedure Name Priority Date/Time Associated Diagnosis Comments MEDICATION CORRESPONDENCE Routine 02/01/2019 12:01 AM CDT documented in this encounter Results Not on filedocumented in this encounter Insurance Payer Benefit Plan Subscriber ID Effective Phone Address Type / Group Dates [facility] [id number] 2016-Prese [address] Medicare Adv - MANAGED MEDICARE ADV nt [id number] [place] [address] FOR [id number] 2017-Pres Medicare LIFE ent Supplement documented as of this encounter
--- OUTSIDE RECORDS SUMMARY | 2019-06-26 01:37 | XMS REPORT | Summary of Care ---
:1950 Author Organization [facility] Address [address] [place] [id number] Care Team Providers Name Role Phone Aydee [...] Kayla [address] [place] [phone] Reason for Visit Reason Comments NURSE VISIT pt enrolled for 30 day event monitor, will picking supervisor from office Encounter Details Date Type Department Care Team Description 02/01/2019 Office Visit [facility] Bri Thomas MD Palpitations (Primary Dx); Cardiology- [address] Bilateral [facility] artery stenosis; [facility]; Drive, [address] S/P CABG (coronary artery bypass graft); [place], [place] Cerebrovascular accident (CVA), unspecified mechanism [id number] [...] ORAL)Indications: mouth daily. Coronary artery disease involving [place] heart without angina pectoris, unspecified vessel or lesion type fluocinonide 0.05 % Apply to scalp 60 mL 1 01/23/2017 Active solution BID rash. PROAIR HFA 90 Inhale 2 Puffs as 4 01/22/2017 Active mcg/actuation inhaler needed. ketoconazole 2 % cream Apply to area(s) 30 g 1 03/11/2017 Active daily. Insulin [place], Use as directed 4 360 Each 3 [...] CDTPatient enrolled for 30-day event monitor through [employer]. Instructed to picking supervisor monitor from officeand apply at home; understanding verbalized via teach back. documented in this encounter Plan of Treatment Date Type Specialty Care Team Description 02/11/2019 Laboratory Only Lube Attendant, Adc Cardio Fac 1, Adc Cardio Fac Room 03/01/2019 Senior Radiation Protection Technician Visit Lube Attendant, Adc Cardio Fac 2, Adc Cardio Fac Room 03/05/2019 Office Visit Vascular Surgery Beverly Benites MD [address] [place] [phone] 03/16/2019 Office Visit Dermatology Americo Wick MD [address] [place] [address] [id number] [place], [place] [phone] 03/17/2019 Agricultural Economics Professor Visit Endocrinology Diabetes & Mina, Charlene, RD Metabolism [address] [place], [place] [phone] 03/30/2019 Office Visit Internal Medicine Shantal Strong MD [address] [place] [address] Dr [address] [place], [place] [phone] 03/31/2019 Office Visit Orthopedic Surgery Harini Calabrese DPM [address] [place] [address] [place] [address] [phone] 05/06/2019 Office Visit Cardiology Aydee Chaney MD [address] [facility] [place] [phone] 06/01/2019 Office Visit Endocrinology Diabetes & SchumacherEstefanía MD Metabolism [address] [place] [address] [phone] 09/08/2019 Office Visit Pulmonary Disease Rajat Pacheco [address] [facility] [place] [address] Health Maintenance Due Date Last [...] of this encounter Implants Implanted Type Area Community Worker Device Shelf Model / Serial Identifier Expiration / Lot Date Lens, Martell #Sn60wf - [id number] LENS Right: Martell 01/16/2023 SN60WF / Implanted: Qty: 1 on 11/12/2018 by Americo Lee MD at [facility] Eye [id number] / NA Lens, Martell #Sn60wf - [id number] LENS Left: Eye Martell 08/17/2019 SN60WF / Implanted: Qty: 1 on 11/26/2018 by Americo Lee MD at [facility] [id number] / N/A documented as of this [...] Phone Address Type / Group Dates [facility] [id number] 2016-Prese [address] Medicare Adv - MANAGED MEDICARE ADV nt [id number] [place] [address] FOR [id number] 2017-Pres Medicare LIFE ent Supplement documented as of this encounter
[2019-06-26] MEDS ORDERED: ONDANSETRON 4 MG/2 ML VIAL ONE ×2 (02:01→04:25)
[2019-06-26] MEDS ORDERED: NA CHLORIDE 0.9% 1,000 ML ONE (02:01)
[2019-06-26 02:20] LABS: Absolute Lymphocytes (CBC) 2.6 K/uL (0.7-4.9); Basophils % 0.8 % (0-1.3); Hematocrit 30.1 % (36.0-45.0); Lymphocytes % 21.3 % (15.3-44.8); MPV 9.4 fL (7.6-11.3); RBC Red Blood Cell Count 3.55 M/uL (3.86-4.86)
[2019-06-26 02:24] LABS: Protime INR 0.89
[2019-06-26 02:37] LABS: BUN Blood Urea Nitrogen 29 mg/dL (7-18); Bicarbonate 26 mmol/L (21-32); Glucose Level 287 mg/dL (74-106); Potassium 3.9 mmol/L (3.5-5.1); Sodium Level 137 mmol/L (136-145); Troponin (Emerg Dept Use Only) < 0.02 ng/mL (0.0-0.045)
[2019-06-26] MEDS ORDERED: LIDOCAINE 1% W/EPI 1:100,000 MDV 20 ML VIAL ONE (02:41)
--- NOTE | 2019-06-26 04:06 | ER ---
Nurse's Notes [facility] Name: Mary Bourne Age: 68 yrs Sex: Female : 1950 Arrival Date: 06/26/2019 Time: 01:30 Bed 13 Private MD: Diagnosis: Fall on same level from slipping, tripping and stumbling;Laceration without foreign body of unspecified part of head;Concussion with loss of consciousness of unspecified duration Presentation: 06/26 01:30 Presenting complaint: EMS states: they were toned out for report of pt fall with LOC bb and laceration to right forehead. Care prior to arrival: None. Mechanism of Injury: Fall pt was in bed and woke up on the floor. Trauma event details: Injury occurred in the [facility], Injury occurred: at home. Injury occurred: June 26, 2019. 01:30 Acuity: JATIN 2 bb 01:30 Method Of Arrival: EMS: [facility] bb 02:22 Transition of care: patient was not received from another setting of care. Onset of bb symptoms was June 26, 2019. Risk Assessment: Do you want to hurt yourself or someone else? Patient reports no desire to harm self or others. Initial Sepsis Screen: Does the patient meet any 2 criteria? No. Patient's initial sepsis screen is negative. 02:29 Initial Sepsis Screen: Does the patient have a suspected source of infection? No. bb Patient's initial sepsis screen is negative. Trauma Activation: Alert Physician: ED Physician; Name: Dre; Notified At: 01:40; Arrived At: 01:42 Physician: General Surgeon; Name: ; Notified At: 01:40; Arrived At: Physician: Radiology; Name: Colt; Notified At: 01:40; Arrived At: 01:43 Physician: Respiratory; Name: ; Notified At: 01:40; Arrived At: Physician: Lab; Name: ; Notified At: 01:40; Arrived At: Historical: - Allergies: 02:23 Demerol; bb 02:23 Erythromycin; bb 02:23 PENICILLINS; bb 02:23 Sulfa (Sulfonamide Antibiotics); bb 02:23 Pyridium; bb - Home Meds: 02:23 Advair Diskus Inhl [Active]; aspirin 81 mg Oral chew 1 tab once daily [Active]; bb Insulin: Novolin R Sub-Q [Active]; Lexapro Oral [Active]; Nexium Oral [Active]; Toprol XL Oral [Active]; - PMHx: 02:23 Asthma; Diabetes - IDDM; GERD; bb - PSHx: 02:23 CABG; bb - Immunization history: Last tetanus immunization: unknown. - Coronavirus screen:: The patient has NOT traveled to [place], [place], or [place] in the past 14 days. Proceed with normal triage process as indicated. - Social history:: Smoking status: Patient denies any tobacco usage or history of. - Ebola Screening: : No symptoms or risks identified at this time. Screenin:30 Abuse screen: Denies threats or abuse. Tuberculosis screening: No symptoms or risk bb factors identified. 02:28 Nutritional screening: No deficits noted. Fall Risk Fall in past 12 months (25 points). bb Secondary diagnosis (15 points) IV access (20 points). Ambulatory Aid- None/Bed Rest/Nurse Assist (0 pts). Mental Status- Oriented to own ability (0 pts). Total Crowder Fall Scale indicates High Risk Score (45 or more points). Fall prevention measures have been instituted. Side Rails Up X 2 Family Present and informed to notify staff if the need to leave the bedside As available patient and family educated on Fall Prevention Program and Strategies. Primary Survey: 01:30 NO uncontrolled hemorrhage observed. A: The patient is alert. Airway: patent. bb Breathing/Chest: Respiratory pattern: regular, Respiratory effort: spontaneous, unlabored, Chest inspection: symmetrical rise and fall of the chest. Circulation: Heart tones present. Disability Alert. Exposure/Environment: All clothing and personal items were removed. Forensic evidence collection is not deemed to be indicated at this time. Items placed in patient belonging bag. 02:29 Reassessment Airway Airway Patent Breathing/Chest Respiratory pattern Regular bb Respiratory effort Spontaneous Unlabored Circulation Heart tones Present Disability Alert. Secondary Survey: :30 HEENT: Face Other laceration to right forehead. Gastrointestinal: No deficits noted. bb : No deficits noted. Musculoskeletal: Circulation, motion, and sensation intact. Assessment: 01:30 General: Appears uncomfortable, Behavior is calm, cooperative. Pain: Complains of pain bb in head. Neuro: Level of Consciousness is awake, alert, obeys commands, Oriented to person, place, time, situation. EENT:. Cardiovascular: Heart tones S1 S2 present. Respiratory: Airway is patent Respiratory effort is even, unlabored, Respiratory pattern is regular, Breath sounds are clear bilaterally. GI: No deficits noted. No signs and/or symptoms were reported involving the gastrointestinal system. Derm: Wound noted right forehead. Musculoskeletal: Circulation, motion, and sensation intact. Injury Description: Laceration sustained to right forehead is 2.6 to 7.5 cm long, was sustained. 01:45 Reassessment: pt cleaned of blood, placed in gown, given warm blankets. bb 02:27 Reassessment: pt to CT scan via stretcher with senior technical editor. bb Vital Signs: 01:30 BP 155 / 79; Pulse 74; Resp 16 S; Temp 97.8(O); Pulse Ox 100% on R/A; Weight 68.04 kg bb (R); Height 5 ft. 2 in. (157.48 cm) (R); Pain 9/10; 02:00 BP 158 / 69; Pulse 77; Resp 17; Pulse Ox 99% on R/A; rv 03:00 BP 135 / 59; Pulse 79; Resp 16; Pulse Ox 99% on R/A; rv 04:00 BP 141 / 86; Pulse 79; Resp 17; Pulse Ox 100% on R/A; rv 05:19 BP 135 / 60; Pulse 84; Resp 16; Pulse Ox 99% ; rv 01:30 Body Mass Index 27.44 (68.04 kg, 157.48 cm) bb [place] Coma Score: 01:30 Eye Response: spontaneous(4). Verbal Response: oriented(5). Motor Response: obeys bb commands(6). Total: 15. 02:00 Eye Response: spontaneous(4). Verbal Response: oriented(5). Motor Response: obeys cp commands(6). Total: 15. 04:05 Eye Response: spontaneous(4). Verbal Response: oriented(5). Motor Response: obeys cp commands(6). Total: 15. Trauma Score (Adult): 01:30 Eye Response: spontaneous(1); Verbal Response: oriented(1); Motor Response: obeys bb commands(2); Systolic BP: > 89 mm Hg(4); Respiratory Rate: 10 to 29 per min(4); Sheila Score: 15; Trauma Score: 12 ED Course: 01:30 Patient arrived in ED. cl3 01:30 Patient has correct armband on for positive identification. Placed in gown. Bed in low bb position. Call light in reach. Side rails up X2. 01:30 Arm band placed on Patient placed in an exam room, on a stretcher, on pulse oximetry. bb 01:30 Patient maintains SpO2 saturation greater than 95% on room air. bb 01:34 Sami Henderson PA is PHCP. cp 01:34 Sami Erickson MD is Attending Physician. cp 01:45 C-collar applied. bb 01:50 Thermoregulation: warm blanket given to patient. bb 01:55 Initial lab(s) drawn, by me, sent to lab. Inserted saline lock: 20 gauge in left bb antecubital area, using aseptic technique. Blood collected. 02:09 Mauro Rios, QUAN is Primary Nurse. rv 02:14 Triage completed. bb 03:04 CT Head C Spine In Process Unspecified. EDMS Administered Medications: 02:12 Drug: NS 0.9% 1000 ml Route: IV; Rate: 75 ml/hr; Site: right antecubital; bb 05:15 Follow up: IV Status: Completed infusion rv 02:12 Drug: Zofran 4 mg Route: IVP; Site: right antecubital; bb 02:31 Follow up: Response: Nausea is decreased bb 04:40 Drug: Tylenol 1000 mg Route: PO; rv 05:15 Follow up: Response: No adverse reaction rv 04:40 Drug: Zofran 4 mg Route: IVP; Site: left antecubital; rv 05:15 Follow up: Response: No adverse reaction rv Intake: 01:30 PO: 0ml; Total: 0ml. bb Outcome: 04:05 Discharge ordered by . cp 05:23 Patient left the ED. bb Signatures: Dispatcher [employer] EDMS Elo Pace RN RN bb Page, Corey, PA PA cp Vicente, Ronaldo, RN RN rv Lewis, Charde cl3
--- NOTE | 2019-06-26 04:07 | EDPHYS ---
Physician Documentation [facility] Name: Mary Borune Age: 68 yrs Sex: Female : 1950 Arrival Date: 06/26/2019 Time: 01:30 Bed 13 Private MD: ED Physician Sami Erickson HPI: 06/26 02:00 This 68 yrs old Female presents to ER via EMS with complaints of Fall Injury. cp 02:00 The patient or guardian reports injury, a laceration. The complaints affect the cp forehead. Context of injury: The problem was sustained at home, Patient unsure how injury occurred, awoke after landing of treadmill next to bed. Onset: The symptoms/episode began/occurred just prior to arrival. Associated signs and symptoms: Pertinent positives: loss of conciousness, nausea. Historical: - Allergies: 02:23 Demerol; bb 02:23 Erythromycin; bb 02:23 PENICILLINS; bb 02:23 Sulfa (Sulfonamide Antibiotics); bb 02:23 Pyridium; bb - Home Meds: 02:23 Advair Diskus Inhl [Active]; aspirin 81 mg Oral chew 1 tab once daily [Active]; bb Insulin: Novolin R Sub-Q [Active]; Lexapro Oral [Active]; Nexium Oral [Active]; Toprol XL Oral [Active]; - PMHx: 02:23 Asthma; Diabetes - IDDM; GERD; bb - PSHx: 02:23 CABG; bb - Immunization history: Last tetanus immunization: unknown. - Coronavirus screen:: The patient has NOT traveled to [place], [place], or [place] in the past 14 days. Proceed with normal triage process as indicated. - Social history:: Smoking status: Patient denies any tobacco usage or history of. - Ebola Screening: : No symptoms or risks identified at this time. ROS: 02:05 Cardiovascular: Negative for chest pain. cp 02:05 Constitutional: Negative for fever, poor PO intake. cp 02:05 Respiratory: Negative for cough, shortness of breath, wheezing. 02:05 Abdomen/GI: Positive for nausea, Negative for abdominal pain, vomiting, diarrhea. 02:05 Skin: Positive for laceration(s), of the forehead. 02:05 Neuro: Positive for headache, loss of consciousness, Negative for altered mental status. 02:05 All other systems are negative. Exam: 02:15 Constitutional: The patient appears in no acute distress, alert, awake, cp non-diaphoretic, non-toxic, well developed, well nourished. 02:15 Head/face: Noted is a laceration(s), that is deep, that is linear, of the forehead. cp 02:15 Eyes: Periorbital structures: appear normal, Pupils: equal, round, and reactive to light and accomodation, Extraocular movements: intact throughout, Conjunctiva: normal, no exudate, no injection, Lids and lashes: appear normal, bilaterally. 02:15 ENT: External ear(s): are unremarkable, Ear canal(s): are normal, clear, TM's: dullness, bilaterally, Nose: is normal, Mouth: Lips: moist, Oral mucosa: pink and intact, moist, Posterior pharynx: is normal, airway is patent, no erythema, no exudate. 02:15 Neck: C-spine: vertebral tenderness, that is mild, crepitus, is not appreciated. 02:15 Chest/axilla: Inspection: normal, Palpation: is normal, no crepitus, no tenderness. 02:15 Cardiovascular: Rate: normal, Rhythm: regular, Edema: is not appreciated, JVD: is not appreciated. 02:15 Respiratory: the patient does not display signs of respiratory distress, Respirations: normal, no use of accessory muscles, no retractions, no splinting, no tachypnea, labored breathing, is not present, Breath sounds: are clear throughout, no decreased breath sounds. 02:15 Abdomen/GI: Inspection: abdomen appears normal, Bowel sounds: active, all quadrants, Palpation: abdomen is soft and non-tender, in all quadrants, rebound tenderness, is not appreciated, voluntary guarding, is not appreciated, involuntary guarding, is not appreciated. 02:15 Musculoskeletal/extremity: Exam is negative for decreased range of motion, deformity, injury. 02:15 Neuro: Orientation: to person, place \T\ time. Mentation: is normal, Cerebellar function: is grossly normal, Motor: moves all fours, strength is normal, Sensation: no obvious gross deficits. Vital Signs: 01:30 BP 155 / 79; Pulse 74; Resp 16 S; Temp 97.8(O); Pulse Ox 100% on R/A; Weight 68.04 kg bb (R); Height 5 ft. 2 in. (157.48 cm) (R); Pain 9/10; 02:00 BP 158 / 69; Pulse 77; Resp 17; Pulse Ox 99% on R/A; rv 03:00 BP 135 / 59; Pulse 79; Resp 16; Pulse Ox 99% on R/A; rv 04:00 BP 141 / 86; Pulse 79; Resp 17; Pulse Ox 100% on R/A; rv 05:19 BP 135 / 60; Pulse 84; Resp 16; Pulse Ox 99% ; rv 01:30 Body Mass Index 27.44 (68.04 kg, 157.48 cm) bb [place] Coma Score: 01:30 Eye Response: spontaneous(4). Verbal Response: oriented(5). Motor Response: obeys bb commands(6). Total: 15. 02:00 Eye Response: spontaneous(4). Verbal Response: oriented(5). Motor Response: obeys cp commands(6). Total: 15. 04:05 Eye Response: spontaneous(4). Verbal Response: oriented(5). Motor Response: obeys cp commands(6). Total: 15. Trauma Score (Adult): 01:30 Eye Response: spontaneous(1); Verbal Response: oriented(1); Motor Response: obeys bb commands(2); Systolic BP: > 89 mm Hg(4); Respiratory Rate: 10 to 29 per min(4); [place] Score: 15; Trauma Score: 12 Laceration: 03:55 Wound Repair of 10cm ( 3.9in ) subcutaneous laceration to forehead. Linear shaped.. cp Distal neuro/vascular/tendon intact. Anesthesia: Wound infiltrated with 20 mls of 1% lidocaine w/ Epi. Wound prep: Moderate cleansing by nurse, Wound irrigation by nurse. Skin closed with 14 5-0 Prolene using interrupted sutures and sterile technique. Dressed with Bacitracin, 4x4's, Kerlix. Patient tolerated well. MDM: 01:35 Patient medically screened. shelly 02:00 Differential diagnosis: Laceration of Intracranial bleed- Concussion cerebral contusion.cp 04:05 Data reviewed: vital signs, nurses notes, lab test result(s), EKG, radiologic studies. 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 Response to treatment: the patient's symptoms have markedly improved after treatment, VSS. After discussion of results of today's studies, patient requesting discharge to home to be monitored by family vs admittance for continued observation, and as a result, I will discharge patient. 06/26 01:55 Order name: Basic Metabolic Panel; Complete Time: 02:44 cp 06/26 02:44 Interpretation: Normal except: GLUC 287; BUN 29; CRE 1.48; GFR 35. cp 06/26 01:55 Order name: CBC with Diff; Complete Time: 02:25 cp 06/26 02:25 Interpretation: Normal except: WBC 12.0; RBC 3.55; HGB 10.0; HCT 30.1; NEUT A 8.2. cp 06/26 01:55 Order name: PT-INR; Complete Time: 02:44 cp 06/26 01:55 Order name: Troponin (emerg Dept Use Only); Complete Time: 02:44 cp 06/26 02:44 Interpretation: Within normal limits: TROPED < 0.02. cp 06/26 01:55 Order name: CT Head C Spine cp 06/26 01:55 Order name: EKG; Complete Time: 01:59 cp 06/26 01:55 Order name: Cardiac monitoring; Complete Time: 02:36 cp 06/26 01:55 Order name: EKG - Nurse/Tech; Complete Time: 05:16 cp 06/26 01:55 Order name: IV Saline Lock; Complete Time: 02:27 cp 06/26 01:55 Order name: Labs collected and sent; Complete Time: 02:27 cp 06/26 01:55 Order name: O2 Per Protocol; Complete Time: 02:27 cp 06/26 01:55 Order name: O2 Sat Monitoring; Complete Time: 02:27 cp 06/26 02:25 Order name: Dressing - Wound; Complete Time: 05:16 cp 06/26 02:25 Order name: Gloves, Sterile; Complete Time: 05:16 cp 06/26 02:25 Order name: Setup Suture Tray; Complete Time: 05:16 cp 06/26 03:06 Order name: Wound Care: please clean irrigate wound; Complete Time: 05:14 cp Administered Medications: 02:12 Drug: NS 0.9% 1000 ml Route: IV; Rate: 75 ml/hr; Site: right antecubital; bb 05:15 Follow up: IV Status: Completed infusion rv 02:12 Drug: Zofran 4 mg Route: IVP; Site: right antecubital; bb 02:31 Follow up: Response: Nausea is decreased bb 04:40 Drug: Tylenol 1000 mg Route: PO; rv 05:15 Follow up: Response: No adverse reaction rv 04:40 Drug: Zofran 4 mg Route: IVP; Site: left antecubital; rv 05:15 Follow up: Response: No adverse reaction rv Disposition: 04:10 Chart complete. cp 09:21 Co-signature as Attending Physician, Sami Erickson MD I agree with the assessment and shelly plan of care. Disposition: 06/26/19 04:05 Discharged to Home. Impression: Fall on same level from slipping, tripping and stumbling, Laceration without foreign body of unspecified part of head, Concussion with loss of consciousness of unspecified duration. - Condition is Stable. - Discharge Instructions: Concussion, Adult, Head Injury, Adult, Laceration Care, Adult. - Prescriptions for Zofran 4 mg Oral Tablet - take 1 tablet by ORAL route every 12 hours As needed; 20 tablet. - Medication Reconciliation Form, Thank You Letter, Antibiotic Education, Prescription Opioid Use form. - Follow up: Private Physician; When: 7 - 10 days; Reason: Staple/Suture removal. - Problem is new. - Symptoms have improved. Signatures: Dispatcher [employer] Sami Faulkner MD MD cha Ballard, Brenda RN RN Sami Vaughan PA PA cp Vicente, Ronaldo, RN RN rv Corrections: (The following items were deleted from the chart) 04:12 04:05 06/26/2019 04:05 Discharged to Home. Impression: Fall on same level from cp slipping, tripping and stumbling; Laceration without foreign body of unspecified part of head. Condition is Stable. Forms are Medication Reconciliation Form, Thank You Letter, Antibiotic Education, Prescription Opioid Use. Follow up: Private Physician; When: 7 - 10 days; Reason: Staple/Suture removal. Problem is new. Symptoms have improved. cp 05:14 04:01 [facility]. Order ordered. cp rv 05:23 04:12 06/26/2019 04:05 Discharged to Home. Impression: Fall on same level from bb slipping, tripping and stumbling; Laceration without foreign body of unspecified part of head; Concussion with loss of consciousness of unspecified duration. Condition is Stable. Discharge Instructions: Head Injury, Adult, Laceration Care, Adult, Concussion, Adult. Prescriptions for Zofran 4 mg Oral Tablet - take 1 tablet by ORAL route every 12 hours As needed; 20 tablet. and Forms are Medication Reconciliation Form, Thank You Letter, Antibiotic Education, Prescription Opioid Use. Follow up: Private Physician; When: 7 - 10 days; Reason: Staple/Suture removal. Problem is new. Symptoms have improved. cp
[2019-06-26] MEDS ORDERED: ACETAMINOPHEN 500 MG TAB ONE (04:25)
[2019-06-26 05:29] VITALS: TEMP 97.8
[2019-06-26 05:34] VITALS: BP 135/60; O2SAT 99
--- NOTE | 2019-06-26 12:07 | RAD REPORT ---
EXAM DESCRIPTION: CT - Head C Spine Mpr Wo Con - 06/26/2019 6:08 am CLINICAL HISTORY: Forehead laceration COMPARISON: 04/17/2018 TECHNIQUE: Axial CT of the head obtained from the skull apex to the skull base without contrast. Axi al CT images of the cervical spine obtained from the skull base through the thoracic inlet. Sagittal and coronal reformatted images available. FINDINGS: CT head: No acute intracranial hemorrhage identified. No mass, mass effect, shift of the midline, abnormal ext ra-axial fluid collection or CT evidence of acute ischemic change identified. Mild enlargement of sarabjit tricular system and sulcal spaces compatible with mild cerebral atrophy. Confluent areas of hypoden sity throughout the supratentorial white matter is nonspecific and may represent sequela of chronic s mall vessel ischemic change. The visualized paranasal sinuses and the mastoids are clear. No skull fracture identified. Visualized orbits and globes are unremarkable. Cervical CT: Alignment of the cervical spine is maintained without evidence of subluxation. The atlantoaxial, at lantodental, and occipitoatlantal intervals are preserved. No fracture identified. Vertebral body h eight preserved. Prevertebral soft tissues are unremarkable. Moderate to severe multilevel loss of intervertebral disc height with endplate spondylosis, facet art hropathy, and uncovertebral spurring. Spurring of the atlantodental articulation. Visualized skull base is intact. No fracture of the visualized facial bones. Visualized mastoid air c ells and paranasal sinuses are well aerated. Visualized thyroid is unremarkable. No cervical lymphadenopathy. No pneumothorax in the visualized lung apices. Atherosclerotic calcification carotid arteries. IMPRESSION: 1. No acute intracranial abnormality. 2. No acute fracture or subluxation of the cervical spine. 3. Multilevel degenerative change of the cervical spine. This exam was performed according to our departmental dose-optimization program, which includes autom ated exposure control, adjustment of the mA and/or kV according to patient size and/or use of iterati ve reconstruction technique. Electronically signed by: Vlad Pires 06/26/2019 3:19 AM TECHNICAL TESTING ENGINEER Due to temporary technical issues with the PACS/Fluency reporting system, reports are being signed by the in house radiologist as a courtesy to ensure prompt reporting. The interpreting radiologist is f ully responsible for the content of the report.
== END 2019-06-26 05:23 | disposition home or self-care (01) ==
LOC: ER 01:26
PROC: 0JQ10ZZ Repair Face Subcutaneous Tissue and Fascia, Open Approach (ICD-10-PCS; principal; 2019-06-26)
DX: S06.0X9A Concussion with loss of consciousness of unspecified duration, initial encounter (principal); W06.XXXA Fall from bed, initial encounter; Y93.9 Activity, unspecified; Y92.003 Bedroom of unspecified non-institutional (private) residence as the place of occurrence of the external cause; E11.9 Type 2 diabetes mellitus without complications; Z79.4 Long term (current) use of insulin; Z95.1 Presence of aortocoronary bypass graft; Z79.82 Long term (current) use of aspirin; Z88.0 Allergy status to penicillin; Z88.2 Allergy status to sulfonamides; Z88.3 Allergy status to other anti-infective agents; Z88.5 Allergy status to narcotic agent
CPT/HCPCS: 96361; 85025; 80048; 36415; 85610; 84484; 70450; 72125; 96374; 99285; 12015; J7030; J2405 ×2